=== PATIENT | female | born 1950 | race Caucasian/White ===

== ENCOUNTER 2016-08-21 11:47 | Emergency (ER) | payer OTHER ==
[~2016-08-21] VITALS: Ht 160 cm; Wt 52.0 kg
[2016-08-21 12:45] LABS: BASO # 0.1 x10^3/uL (0.0-0.2); BASO % 1 % (0-3); EOS # 0.2 x10^3/uL (0.0-0.7); EOS % 3 % (0-3); HEMATOCRIT 40.2 % (36.0-47.0); HEMOGLOBIN 13.3 g/dL (12.0-15.5); LYMPH # 1.4 x10^3/uL (1.0-4.8); LYMPH % 20 % (24-48); MEAN CORPUSCULAR HEMOGLOBIN 29 pg (25-35); MEAN CORPUSCULAR HGB CONC 33 g/dL (31-37); MEAN CORPUSCULAR VOLUME 87 fL (79-100); MONO # 0.4 x10^3/uL (0.0-1.1); MONO % 5 % (0-9); NEUT # 4.9 x10^3uL (1.8-7.7); NEUT % 71 % (31-73); PLATELET COUNT 211 x10^3/uL (140-400); RED BLOOD COUNT 4.64 x10^6/uL (3.50-5.40); RED CELL DISTRIBUTION WIDTH 14.4 % (11.5-14.5)
[2016-08-21 12:59] LABS: ALBUMIN 3.9 g/dL (3.4-5.0); CALCIUM 9.3 mg/dL (8.5-10.1); POTASSIUM 4.1 mmol/L (3.5-5.1); TOTAL BILIRUBIN 0.4 mg/dL (0.2-1.0)
--- NOTE | 2016-08-21 13:02 | RAD ---
AP chest, 08/21/2016: History: Shortness of breath Comparison is made to a study from 01/02/2016. The heart size and pulmonary vascularity are normal. No pulmonary infiltrates are seen. There is no evidence of pleural fluid. IMPRESSION: No acute cardiopulmonary abnormality is detected.
--- NOTE | 2016-08-21 13:02 | EKG ---
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
--- NOTE | 2016-08-21 13:12 | RAD ---
Indication fall 5 days previously. Frontal pain. Dizziness. Blurred vision. Posterior neck pain. The head and cervical spine were evaluated. Images of the cervical spine were reformatted in the coronal and sagittal planes. The head is compared to previous examination 01/02/2016. The calvarium appears unremarkable. The visualized paranasal sinuses appear normal. There is no subdural or epidural hematoma. The ventricles and sulci are normal given the patient's age. There is no mass or midline shift. No hemorrhage is seen. Acute intracranial finding or significant change compared to the previous exam is not seen. CT cervical spine: Findings the lung apices are clear. The thyroid is mildly and diffusely enlarged. A significant soft tissue finding in the neck is not seen. There are some degenerative changes in the cervical spine. An acute finding is not seen on the axial images. Best demonstrated on the reformatted images is some disc space narrowing at C4-5. An acute finding is not seen. There is a lucency in the C3 vertebral body. The etiology is unclear. IMPRESSION: Spondylitic changes in the cervical spine. No acute finding seen No acute finding seen in the head PQRS Compliance Statement: One or more of the following individualized dose reduction techniques were utilized for this examination: 1. Automated exposure control 2. Adjustment of the mA and/or kV according to patient size 3. Use of iterative reconstruction technique
[2016-08-21] MEDS: IV NORMAL SALINE 500ML 500 ML IV ONE (14:20)
[2016-08-21 14:40] LABS: BACTERIA,URINE FEW /HPF (0-FEW); BILIRUBIN,URINE NEG (NEG); CLARITY,URINE HAZY; COLOR,URINE YELLOW; GLUCOSE,URINE NEG (NEG); NITRITE,URINE NEG (NEG); SQUAMOUS EPITHELIAL CELL,UR OCC /LPF; UROBILINOGEN,URINE 0.2 mg/dL (0.2 mg/dL)
--- NOTE | 2016-08-21 15:59 | ED.ADGEN ---
Past History Past Medical History: No Pertinent History Past Surgical History: No Surgical History Alcohol Use: None Drug Use: None Adult General Chief Complaint Chief Complaint Multiple medical complaints HPI HPI Patient is a 65-year-old female who presents with intermittent daily headaches for the past several weeks, chronic dizziness for the past several months, urinary frequency urgency and frequency for the past several days. Patient states she slipped and off balance 5 days ago while walking in her driveway. She fell striking the left side of her face. She denies loss of consciousness. She is not on anticoagulation therapy. She is said persistent dizziness worse with position change and movement. This is similar to previous dizzy episodes. She denies tinnitus, change of hearing, change of vision, impaired speech, extremity weakness or loss of sensation. Reports urinary frequency, and urgency but denies flank pain. No fever chills, nausea vomiting or sweats. No other acute symptoms or complaints. Patient referred to the ER by her PCP earlier today. Review of Systems Review of Systems Review symptoms as per history of present illness. All other review symptoms are negative. Current Medications Current Medications Current Medications Medications (Trade) Dose Ordered Sig/Trevor Start Time Stop Time Status Last Admin Dose Admin Ciprofloxacin (Cipro) 500 mg 1X ONCE 08/21/16 16:10 08/21/16 16:11 Meclizine HCl (Antivert) 25 mg 1X ONCE 08/21/16 16:10 08/21/16 16:11 Sodium Chloride (Iv Sodium Chloride 0.9% 500ml) 500 ml @ 0 mls/hr 1X ONCE 08/21/16 13:30 08/21/16 13:31 DC 08/21/16 14:20 999 MLS/HR Allergies Allergies Allergies Coded Allergies Type Severity Reaction Last Updated Verified No Known Drug Allergies 08/21/16 No Physical Exam Physical Exam Constitutional: Well developed, well nourished, no acute distress, non-toxic appearance. HENT: Normocephalic, atraumatic, bilateral external ears normal, oropharynx moist, no oral exudates, nose normal. Eyes: PERRLA, EOMI, conjunctiva normal, no discharge. Neck: Normal range of motion, no midline tenderness. Cardiovascular:Heart rate regular rhythm, no murmur. Lungs & Thorax: Bilateral breath sounds clear to auscultation. Abdomen: Bowel sounds normal, soft, nontender pubic pain tenderness. Skin: Warm, dry, no erythema, no rash. Back: No tenderness, no CVA tenderness. Extremities: No tenderness, no cyanosis. Neurologic: Alert and oriented X 3, renal nerves II through XII grossly intact, no extremity weakness or loss of sensation. Psychologic: Affect normal, judgement normal, mood normal. Current Patient Data Vital Signs Vital Signs Date Time Temp Pulse Resp B/P Pulse Ox O2 Delivery O2 Flow Rate FiO2 08/21/16 11:55 98.3 71 18 98 Room Air Lab Results Laboratory Tests Test 08/21/16 12:34 08/21/16 14:04 White Blood Count 7.0x10^3/uL (4.0-11.0) Red Blood Count 4.64x10^6/uL (3.50-5.40) Hemoglobin 13.3g/dL (12.0-15.5) Hematocrit 40.2% (36.0-47.0) Mean Corpuscular Volume 87fL (79-100) Mean Corpuscular Hemoglobin 29pg (25-35) Mean Corpuscular Hemoglobin Concent 33g/dL (31-37) Red Cell Distribution Width 14.4% (11.5-14.5) Platelet Count 211x10^3/uL (140-400) Neutrophils (%) (Auto) 71% (31-73) Lymphocytes (%) (Auto) 20% (24-48) L Monocytes (%) (Auto) 5% (0-9) Eosinophils (%) (Auto) 3% (0-3) Basophils (%) (Auto) 1% (0-3) Neutrophils # (Auto) 4.9x10^3uL (1.8-7.7) Lymphocytes # (Auto) 1.4x10^3/uL (1.0-4.8) Monocytes # (Auto) 0.4x10^3/uL (0.0-1.1) Eosinophils # (Auto) 0.2x10^3/uL (0.0-0.7) Basophils # (Auto) 0.1x10^3/uL (0.0-0.2) Sodium Level 139mmol/L (136-145) Potassium Level 4.1mmol/L (3.5-5.1) Chloride Level 105mmol/L (98-107) Carbon Dioxide Level 28mmol/L (21-32) Anion Gap 6 (6-14) Blood Urea Nitrogen 23mg/dL (7-20) H Creatinine 1.0mg/dL (0.6-1.0) Estimated GFR (Cockcroft-Gault) 56.0 BUN/Creatinine Ratio 23 (6-20) H Glucose Level 88mg/dL (70-99) Calcium Level 9.3mg/dL (8.5-10.1) Total Bilirubin 0.4mg/dL (0.2-1.0) Aspartate Amino Transferase (AST) 17U/L (15-37) Alanine Aminotransferase (ALT) 22U/L (14-59) Alkaline Phosphatase 115U/L (46-116) Troponin I Quantitative < 0.017ng/mL (0-0.055) Total Protein 8.0g/dL (6.4-8.2) Albumin 3.9g/dL (3.4-5.0) Albumin/Globulin Ratio 1.0 (1.0-1.7) Urine Collection Type Unknown Urine Color Yellow Urine Clarity Hazy Urine pH 6.0 Urine Specific [place] 1.020 Urine Protein Neg (NEG-TRACE) Urine Glucose (UA) Negmg/dL (NEG) Urine Ketones (Stick) 15mg/dL (NEG) Urine Blood Mod (NEG) Urine Nitrite Neg (NEG) Urine Bilirubin Neg (NEG) Urine Urobilinogen Dipstick 0.2mg/dL (0.2 mg/dL) Urine Leukocyte Esterase Mod (NEG) Urine RBC 1-2/HPF (0-2) Urine WBC 11-20/HPF (0-4) Urine Squamous Epithelial Cells Occ/LPF Urine Transitional Epithelial Cells Occ/LPF Urine Bacteria Few/HPF (0-FEW) Urine Mucus Slight/LPF EKG EKG [] Radiology/Procedures Radiology/Procedures [CT head/C-spine: No acute findings per radiology report.] Impressions: Multiple medical complaints. Headache and dizziness appear to be chronic. IV fluids, pain medication given and antibiotics. With improved symptoms. Recommend home rest, increase fluids, antibiotics and close PCP follow-up. Return precautions reviewed. Patient verbalizes understanding and agreement with treatment plan prior to departure. Course & Med Decision Making Course & Med Decision Making Pertinent Labs and Imaging studies reviewed. (See chart for details) [] Final Impression Final Impression [1. Headache 2. Dizziness 3. Urinary tract infection] Problems: Ailyn Disclaimer Dragon Disclaimer This electronic medical record was generated, in whole or in part, using a voice recognition dictation system. JOSE DE JESUS JOHNSTON DO Aug 21, 2016 15:59
[2016-08-21 16:00] VITALS: BP 141/60
[2016-08-21] MEDS: MECLIZINE 25 MG TABLET PO ONE (16:10)
[2016-08-21] MEDS: CIPROFLOXACIN HCL 500 MG TABLET PO ONE (16:10)
== END 2016-08-21 16:10 | disposition home or self-care (01) ==
LOC: ER 11:47
DX: R51 Headache (principal); N39.0 Urinary tract infection, site not specified; R42 Dizziness and giddiness
CPT/HCPCS: 36415; 70450; 71010; 72125; 80053; 81001; 84443; 84484; 85027; 87086; 93005; 96360; 99285; J7040; J8597

== ENCOUNTER → 2017-05-21 | Outpatient (CLI) | payer OTHER ==
--- NOTE | 2017-05-21 13:05 | RAD ---
Radionuclide parathyroid scan 05/21/2017: History: Elevated parathyroid hormone level Imaging of the lower neck was performed following IV injection of 23 mCi of technetium 99m sestamibi. There is mildly increased activity in the medial aspect of the lower pole of the left lobe of the gland on both the initial and delayed images. Correlation with the CT study from 08/21/2016 demonstrates a mildly enlarged thyroid gland with increased thickness in the lower pole on the left. No other abnormality is is seen on the radionuclide scan. IMPRESSION: Mildly increased activity at the level of lower pole the left lobe of the thyroid gland which may be secondary to generalized thickening of the gland at that level. An underlying parathyroid adenoma cannot be excluded.
== END | disposition home or self-care (01) ==
LOC: NM 07:25
PROVIDERS: ATTEND Nurse Practitioner Family
DX: E21.2 Other hyperparathyroidism (principal)
CPT/HCPCS: 78070; 96374; A9500

== ENCOUNTER 2017-08-28 12:02 | Inpatient (IN) | payer OTHER ==
[~2017-08-28] VITALS: Ht 160 cm; Wt 78.6 kg
[2017-08-28 12:56] VITALS: BP 118/79
[2017-08-28] MEDS: IPRATRPIUM/ALBUTEROL 0.5/2.5MG 3 ML NEBU. NEB SCH ×3 (13:00→22:09)
[2017-08-28 13:26] LABS: BASO # 0.1 x10^3/uL (0.0-0.2); BASO % 1 % (0-3); EOS # 0.2 x10^3/uL (0.0-0.7); EOS % 3 % (0-3); HEMATOCRIT 39.6 % (36.0-47.0); LYMPH # 1.5 x10^3/uL (1.0-4.8); LYMPH % 20 % (24-48); MEAN CORPUSCULAR HEMOGLOBIN 27 pg (25-35); MEAN CORPUSCULAR HGB CONC 33 g/dL (31-37); MEAN CORPUSCULAR VOLUME 82 fL (79-100); MONO # 0.3 x10^3/uL (0.0-1.1); MONO % 4 % (0-9); NEUT # 5.3 x10^3uL (1.8-7.7); NEUT % 72 % (31-73); PLATELET COUNT 289 x10^3/uL (140-400); RED BLOOD COUNT 4.82 x10^6/uL (3.50-5.40); WHITE BLOOD COUNT 7.4 x10^3/uL (4.0-11.0)
[2017-08-28 13:34] LABS: ALBUMIN 3.5 g/dL (3.4-5.0); ALBUMIN/GLOBULIN RATIO 0.7 (1.0-1.7); CALCIUM 9.4 mg/dL (8.5-10.1); CREATININE 1.3 mg/dL (0.6-1.0); GFR 41.2; TOTAL BILIRUBIN 0.4 mg/dL (0.2-1.0); TOTAL PROTEIN 8.2 g/dL (6.4-8.2)
--- NOTE | 2017-08-28 14:18 | RAD ---
2 views of the Chest 08/28/2017 2:53 PM Indication: SOB/ R/O pneumonia Comparison: Chest radiograph August 21, 2016 Findings: Patchy opacification of the right lung base. The appearance there is atelectasis, though underlying pneumonia cannot be excluded. Minimal discoid atelectasis seen in the lateral left lung. Trace effusion may be present on the right. No pneumothorax is seen. Heart size is normal. Prior median sternotomy noted. No acute osseous changes are identified. Impression: 1.Patchy opacities in the right lung base, the appearance of which appears atelectasis. Underlying infiltrate however is not excluded. 2. Minimal atelectasis in the left midlung
[2017-08-28] MEDS ORDERED: IOHEXOL 300 MG/ML 75 ML VIAL. IV ONE (14:30)
[2017-08-28] MEDS ORDERED: CONTRAST GIVEN MC PRN (14:30)
[2017-08-28] MEDS ORDERED: AMIO200T2 PO (14:31)
[2017-08-28] MEDS ORDERED: PARO20TA3 PO (14:31)
[2017-08-28] MEDS ORDERED: BUSP10TA PO (14:31)
[2017-08-28] MEDS ORDERED: CYCL5TAB PO (14:31)
[2017-08-28] MEDS ORDERED: APIX5TAB3 PO (14:31)
[2017-08-28] MEDS ORDERED: METO50TA29 PO (14:31)
[2017-08-28] MEDS ORDERED: LEVO100T5 PO (14:31)
[2017-08-28 15:06] VITALS: BP 133/73
[2017-08-28 15:25] LABS: BILIRUBIN,URINE NEG (NEG); CLARITY,URINE CLOUDY; COLOR,URINE YELLOW; GLUCOSE,URINE NEG (NEG); NITRITE,URINE NEG (NEG); UROBILINOGEN,URINE 0.2 mg/dL (0.2 mg/dL)
[2017-08-28 15:26] LABS: BACTERIA,URINE 0 /HPF (0-FEW); SQUAMOUS EPITHELIAL CELL,UR FEW /LPF; WBC,URINE >40 /HPF (0-4)
[2017-08-28] MEDS: IV NORMAL SALINE 1,000ML 1,000 ML IV SCH (15:26)
[2017-08-28] MEDS: cefTRIAXone IV Push 1 GM VIAL. IVP SCH (15:26)
[2017-08-28 19:22] VITALS: BP 96/58
[2017-08-28] MEDS: LACTOBACILLUS RHAMNOSUS GG 1 CAPSULE. PO SCH (21:15)
[2017-08-28] MEDS: CYCLOBENZAPRINE 10 MG TABLET. PO SCH (21:15)
[2017-08-28] MEDS: DOXYCYCLINE HYCLATE 100 MG TABLET PO SCH (21:15)
[2017-08-28] MEDS: PARoxetine 20 MG TABLET PO SCH (21:15)
[2017-08-28] MEDS: AMIODARONE HCL 200 MG TABLET PO SCH (21:16)
[2017-08-28 21:26] VITALS: BP 112/53
[2017-08-28] MEDS: METOPROLOL SUCC 24HR ER 50 MG TAB.ER.24H. PO SCH (21:26)
[2017-08-28 22:58] VITALS: BP 91/61
[2017-08-29] MEDS: IV NORMAL SALINE 1,000ML 1,000 ML IV SCH ×3 (01:25→20:30)
[2017-08-29] MEDS: LEVOTHYROXINE 100 MCG TABLET PO SCH (02:53)
[2017-08-29 02:54] VITALS: BP 93/55
[2017-08-29] MEDS: APIXABAN 5 MG TABLET. PO SCH ×2 (02:54→11:50)
[2017-08-29] MEDS: busPIRone 10 MG TABLET. PO SCH ×2 (02:54→11:50)
[2017-08-29 05:03] VITALS: BP 105/62
[2017-08-29] MEDS: IPRATRPIUM/ALBUTEROL 0.5/2.5MG 3 ML NEBU. NEB SCH ×4 (05:30→22:22)
[2017-08-29 06:58] LABS: BASO # 0.1 x10^3/uL (0.0-0.2); BASO % 1 % (0-3); EOS # 0.2 x10^3/uL (0.0-0.7); EOS % 3 % (0-3); HEMATOCRIT 34.6 % (36.0-47.0); HEMOGLOBIN 11.2 g/dL (12.0-15.5); LYMPH # 2.2 x10^3/uL (1.0-4.8); LYMPH % 37 % (24-48); MEAN CORPUSCULAR HEMOGLOBIN 27 pg (25-35); MEAN CORPUSCULAR HGB CONC 32 g/dL (31-37); MEAN CORPUSCULAR VOLUME 83 fL (79-100); MONO # 0.3 x10^3/uL (0.0-1.1); MONO % 6 % (0-9); NEUT # 3.2 x10^3uL (1.8-7.7); NEUT % 53 % (31-73); PLATELET COUNT 228 x10^3/uL (140-400); RED BLOOD COUNT 4.17 x10^6/uL (3.50-5.40); RED CELL DISTRIBUTION WIDTH 17.5 % (11.5-14.5); WHITE BLOOD COUNT 5.9 x10^3/uL (4.0-11.0)
[2017-08-29 07:01] LABS: CALCIUM 8.7 mg/dL (8.5-10.1); CREATININE 1.1 mg/dL (0.6-1.0); POTASSIUM 3.5 mmol/L (3.5-5.1)
--- NOTE | 2017-08-29 09:10 | RAD ---
Acute abdomen series with chest, 3 views, 08/29/2017: History: Right lower quadrant tenderness and pain There is gas and stool scattered throughout the colon a nonspecific pattern. No free air is seen in the abdomen. There is no evidence of organomegaly. There are surgical clips overlying the pelvis bilaterally. Lower pelvic calcifications are probably phleboliths. The heart size and pulmonary vascularity are normal. Moderate streaky right basilar and left perihilar opacities are unchanged since yesterday's study and probably reflect discoid atelectasis. Small pleural effusions evident on the current CT study are not clearly visualized radiographically. IMPRESSION: 1. No acute abdominal abnormality is detected. 2. Moderate discoid atelectasis in the right base and left parahilar regions.
[2017-08-29] MEDS: LACTOBACILLUS RHAMNOSUS GG 1 CAPSULE. PO SCH ×2 (09:36→21:21)
[2017-08-29] MEDS: DOXYCYCLINE HYCLATE 100 MG TABLET PO SCH ×2 (09:37→21:21)
[2017-08-29 11:03] VITALS: BP 95/62
--- NOTE | 2017-08-29 13:10 | RAD ---
CTA OF THE CHEST WITH AND WITHOUT CONTRAST Clinical indications: Elevated d-dimer. Shortness of breath. Technique: Noncontrast axial localizer was performed. After IV infusion of 75 cc of Omnipaque 300, helical CT scanning of the chest was performed using the CT pulmonary embolism protocol. A coronal MIP reconstruction was generated. PQRS compliance Statement One or more of the following individualized dose reduction techniques were utilized for this study: 1. Automated exposure control 2. Adjustment of the mA and/or kV according to patient size 3. Use of iterative reconstruction technique Comparison: None available. Findings: No pulmonary embolism is evident. No focal aneurysmal dilatation or dissection of the thoracic aorta is seen. The heart size is at the upper limits of normal. No pericardial effusion is seen. Surgical clips are seen within the upper anterior mediastinum. A sternotomy is evident. There is some mild soft tissue thickening of the anterior mediastinum which most likely is postoperative in nature. No enlarged thoracic lymphadenopathy is seen. Small bilateral pleural effusions are seen. Infiltrate or atelectasis of the right lower lobe is seen. There is some atelectasis of the inferior aspect of the right middle lobe. There is infiltrate or atelectasis of the lingula. Decreased lung volumes are seen bilaterally. There is asymmetric elevation of the right hemidiaphragm. No pneumothorax is seen. The proximal bronchial tree is patent. No osteolytic process is evident. No adrenal mass is seen. Radiopaque gallstone is seen within the gallbladder. This measures 17 mm. No osteolytic process is evident. IMPRESSION: No pulmonary embolism. Decreased lung volumes. Atelectasis or infiltrate within the right lower lobe and lingula.. Atelectasis within the right middle lobe. Small bilateral pleural effusions. Cholelithiasis. Electronically signed by: Marlon Sanders MD (08/29/2017 1:07 PM) [place] [id number]
[2017-08-29 14:55] VITALS: BP 108/72
[2017-08-29] MEDS: cefTRIAXone IV Push 1 GM VIAL. IVP SCH (15:24)
--- NOTE | 2017-08-29 17:10 | EKG ---
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
[2017-08-29 19:16] VITALS: BP 111/71
[2017-08-29 21:13] LABS: THYROPEROXIDASE ANTIBODY 231 IU/mL (0-34)
[2017-08-29] MEDS: METOPROLOL SUCC 24HR ER 50 MG TAB.ER.24H. PO SCH (21:20)
[2017-08-29] MEDS: AMIODARONE HCL 200 MG TABLET PO SCH (21:21)
[2017-08-29] MEDS: CYCLOBENZAPRINE 10 MG TABLET. PO SCH (21:21)
[2017-08-29] MEDS: PARoxetine 20 MG TABLET PO SCH (21:21)
[2017-08-29 22:10] LABS: CALCIUM PTH 8.9 mg/dL (8.7-10.3); CREATININE PTH 0.84 mg/dL (0.57-1.00); PTH INTACT 103 pg/mL (15-65)
[2017-08-29 23:09] VITALS: BP 113/65
--- NOTE | 2017-08-30 00:29 | PN ---
DATE: 08/29/2017 SUBJECTIVE: The patient complains of some pain primarily in her right upper quadrant area. The patient otherwise says she is feeling good. Nothing seems to make it better or worse, except maybe taking a deep breath on exhalation, she has the pain. She still has her gallbladder. OBJECTIVE: VITAL SIGNS: Blood pressure 105/62, respiration 18, pulse 60, afebrile. LUNGS: Diminished primarily in the bases. CARDIOVASCULAR: Regular sinus rhythm, S1, S2. ABDOMEN: Soft. Definite tenderness in the epigastric to right upper quadrant area. LABORATORY DATA: She had positive D-dimer, but she has been on Eliquis. The patient has 40 white blood cells in her urine and that is still pending for a culture as well as a sputum culture. PLAN: We will continue to monitor. Continue on IV antibiotic therapy. Make further evaluation. IMPRESSION: Pneumonia of unspecified etiology, community-acquired; urinary tract infection, abdominal pain, positive D-dimer. Continue with present drug regimen. BAL CHAPA MD DR: ANJALI/devin JOB#: [id number] / [id number]
[2017-08-30] MEDS: IV NORMAL SALINE 1,000ML 1,000 ML IV SCH ×3 (01:32→14:15)
[2017-08-30] MEDS: busPIRone 10 MG TABLET. PO SCH ×2 (02:51→12:20)
[2017-08-30] MEDS: LEVOTHYROXINE 100 MCG TABLET PO SCH (02:51)
[2017-08-30] MEDS: APIXABAN 5 MG TABLET. PO SCH ×2 (02:51→12:20)
[2017-08-30] MEDS: IPRATRPIUM/ALBUTEROL 0.5/2.5MG 3 ML NEBU. NEB SCH ×4 (05:20→20:36)
[2017-08-30 05:21] VITALS: BP 119/79
[2017-08-30 06:36] LABS: BASO # 0.1 x10^3/uL (0.0-0.2); BASO % 1 % (0-3); EOS # 0.2 x10^3/uL (0.0-0.7); EOS % 4 % (0-3); HEMATOCRIT 31.6 % (36.0-47.0); HEMOGLOBIN 10.4 g/dL (12.0-15.5); LYMPH # 1.7 x10^3/uL (1.0-4.8); LYMPH % 33 % (24-48); MEAN CORPUSCULAR HEMOGLOBIN 27 pg (25-35); MEAN CORPUSCULAR HGB CONC 33 g/dL (31-37); MEAN CORPUSCULAR VOLUME 83 fL (79-100); MONO # 0.3 x10^3/uL (0.0-1.1); MONO % 6 % (0-9); NEUT % 56 % (31-73); PLATELET COUNT 210 x10^3/uL (140-400); RED CELL DISTRIBUTION WIDTH 17.3 % (11.5-14.5); WHITE BLOOD COUNT 5.3 x10^3/uL (4.0-11.0)
[2017-08-30 06:38] LABS: CALCIUM 8.6 mg/dL (8.5-10.1); CREATININE 0.8 mg/dL (0.6-1.0); GFR 72.2; POTASSIUM 3.8 mmol/L (3.5-5.1)
--- NOTE | 2017-08-30 08:26 | RAD ---
Abdominal ultrasound, 08/29/2017: History: Epigastric pain The gallbladder is within normal limits in size. It contains a single large focus of increased echogenicity with posterior acoustic shadowing compatible with a gallstone. The gallbladder hanson are not thickened. The common hepatic duct is of normal caliber. There is no evidence of a hepatic mass. The pancreas was obscured by overlying bowel. The visualized portions of the abdominal aorta and inferior vena cava are unremarkable. The spleen is of normal size. No renal abnormality is detected. No free fluid is evident in the abdomen. IMPRESSION: Cholelithiasis
[2017-08-30] MEDS: LACTOBACILLUS RHAMNOSUS GG 1 CAPSULE. PO SCH ×2 (08:37→20:36)
[2017-08-30] MEDS: DOXYCYCLINE HYCLATE 100 MG TABLET PO SCH ×2 (08:37→20:37)
[2017-08-30 10:52] VITALS: BP 117/77
[2017-08-30 15:09] VITALS: BP 115/70
[2017-08-30] MEDS: cefTRIAXone IV Push 1 GM VIAL. IVP SCH (15:27)
[2017-08-30 18:44] VITALS: BP 137/85
[2017-08-30] MEDS: PARoxetine 20 MG TABLET PO SCH (20:36)
[2017-08-30] MEDS: METOPROLOL SUCC 24HR ER 50 MG TAB.ER.24H. PO SCH (20:37)
[2017-08-30] MEDS: AMIODARONE HCL 200 MG TABLET PO SCH (20:37)
[2017-08-30] MEDS: CYCLOBENZAPRINE 10 MG TABLET. PO SCH (20:37)
[2017-08-31] MEDS: IV NORMAL SALINE 1,000ML 1,000 ML IV SCH ×2 (00:26→12:30)
[2017-08-31] MEDS: busPIRone 10 MG TABLET. PO SCH ×2 (02:53→12:29)
[2017-08-31] MEDS: APIXABAN 5 MG TABLET. PO SCH ×2 (02:53→12:29)
[2017-08-31] MEDS: LEVOTHYROXINE 100 MCG TABLET PO SCH (02:53)
[2017-08-31 06:08] VITALS: BP 133/86
[2017-08-31] MEDS: IPRATRPIUM/ALBUTEROL 0.5/2.5MG 3 ML NEBU. NEB SCH ×2 (08:00→11:48)
[2017-08-31] MEDS: LACTOBACILLUS RHAMNOSUS GG 1 CAPSULE. PO SCH (08:31)
[2017-08-31] MEDS: DOXYCYCLINE HYCLATE 100 MG TABLET PO SCH (08:31)
[2017-08-31 11:01] VITALS: BP 124/70
[2017-08-31] MEDS ORDERED: IPRA3AMP NEB (11:47)
[2017-08-31] MEDS ORDERED: CIPR500T94 PO (14:18)
--- NOTE | 2017-08-31 17:12 | PN ---
DATE: 08/30/2017 SUBJECTIVE: A 66-year-old female in with pneumonia. The patient is still having problems with breathing and coughing up phlegm. The patient says she gets caught in her throat and has difficulty in for evacuation of such. The patient is still somewhat short of breath with exertion, although seems to be making some steady progress the patient otherwise. PHYSICAL EXAMINATION: VITAL SIGNS: Blood pressure 120/80, respiratory rate 16, pulse 62, afebrile. GENERAL: The patient is alert and oriented. LUNGS: Diminished, primarily in the bases. CARDIOVASCULAR: Regular sinus rhythm, S1, S2. ABDOMEN: Soft, nontender. EXTREMITIES: No clubbing, cyanosis or edema. NEUROLOGIC: The patient alert and oriented x 3. IMPRESSION: Pneumonia, acute exacerbation of COPD, urinary tract infection, probably collected after she had her antibiotics. In any case, continue on IV antibiotic therapy and make further evaluation. BAL CHAPA MD DR: ANJALI/devin JOB#: [id number] / [id number]
--- NOTE | 2017-09-01 00:06 | DS ---
DATE OF DISCHARGE: 08/31/2017 HOSPITAL COURSE: A 66-year-old female in with pneumonia. The patient was admitted. She also had exacerbation of COPD, acute respiratory failure. The patient made good progress during the rest of her hospitalization. She did have some abdominal pain and was noted to have some cholelithiasis. She had one gallstone. In any case, the patient made good progress during the rest of her hospitalization and felt much better. She was discharged home to followup. She will be followed up as an outpatient. Other than that, the patient's labs showed some minor anemia and some vitamin D deficiency. She did also have an elevated PTH. Her calcium scores were normal. She had slightly low iron levels. The patient will be followed up as an outpatient for further evaluation on these multiple problems. IMPRESSION: Pneumonia of unspecified etiology, hyperparathyroidism, iron deficiency anemia, vitamin D deficiency, acute renal failure from dehydration, acute exacerbation of chronic obstructive pulmonary disease. PLAN: The patient will be followed up as an outpatient. See MRAD. Regular diet, decreased activity, and followup on her multiple medical issues as noted above. BAL CHAPA MD DR: ANJALI/devin JOB#: [id number] / [id number]
== END 2017-08-31 14:25 | disposition home or self-care (01) | DRG 193 ==
LOC: 1 SOUTH 12:38
PROVIDERS: ADMIT Family Medicine; ATTEND Family Medicine
DX: J16.8 Pneumonia due to other specified infectious organisms (principal); J96.00 Acute respiratory failure, unspecified whether with hypoxia or hypercapnia; N39.0 Urinary tract infection, site not specified; N17.9 Acute kidney failure, unspecified; J44.1 Chronic obstructive pulmonary disease with (acute) exacerbation; J44.0 Chronic obstructive pulmonary disease with (acute) lower respiratory infection; E86.0 Dehydration; E55.9 Vitamin D deficiency, unspecified; D50.9 Iron deficiency anemia, unspecified; K80.20 Calculus of gallbladder without cholecystitis without obstruction; E03.9 Hypothyroidism, unspecified; E21.2 Other hyperparathyroidism; R10.31 Right lower quadrant pain; R53.83 Other fatigue; E04.8 Other specified nontoxic goiter; Z79.899 Other long term (current) drug therapy
CPT/HCPCS: 36415; 71046; 71275; 74022; 76700; 80048; 80053; 81001; 82306; 82607; 82728; 82746; 83540; 83550; 83605; 83970; 84481; 85025; 85379; 86376; 87040; 87086; 93005; 94640; J0696; J7620; Q9967; J7030

== ENCOUNTER → 2017-09-06 | Outpatient (CLI) | payer OTHER ==
[2017-08-31 11:01] VITALS: BP 124/70
[~2017-09-06] MED LIST: AMIO200T2 PO; APIX5TAB3 PO; BUSP10TA PO; CIPR500T94 PO; CYCL5TAB PO; IPRA3AMP NEB; LEVO100T5 PO; METO50TA29 PO; PARO20TA3 PO
--- NOTE | 2017-09-06 16:44 | RAD ---
Thyroid ultrasound, 09/06/2017: HISTORY: Abnormal thyroid labs The right lobe of the gland measures 4.4 x 1.7 x 1.6 cm while the left lobe of the gland measures 5.1 x 1.7 x 2.0 cm. The thyroid echo pattern is quite heterogeneous bilaterally. No discrete or dominant thyroid lesion is seen. The thyroid vascularity does not appear to be increased. IMPRESSION: Markedly heterogeneous thyroid gland suggesting old or chronic thyroiditis. Electronically signed by: Carter Haas MD (09/06/2017 4:41 PM) [facility]
== END | disposition home or self-care (01) ==
LOC: US 14:22
PROVIDERS: ATTEND Nurse Practitioner Family
DX: E21.2 Other hyperparathyroidism (principal); E04.8 Other specified nontoxic goiter; Z87.891 Personal history of nicotine dependence
CPT/HCPCS: 76536

== ENCOUNTER 2017-09-28 11:22 | Inpatient (IN) | payer OTHER ==
[~2017-09-28] VITALS: Ht 160 cm; Wt 75.4 kg
[2017-09-28 12:00] VITALS: BP 140/87
[2017-09-28] MEDS ORDERED: MECL-51 PO (12:11)
[2017-09-28] MEDS ORDERED: SENN-79 PO (12:11)
[2017-09-28 12:23] LABS: BASO # 0.1 x10^3/uL (0.0-0.2); BASO % 1 % (0-3); EOS # 0.2 x10^3/uL (0.0-0.7); EOS % 2 % (0-3); HEMATOCRIT 41.1 % (36.0-47.0); HEMOGLOBIN 13.7 g/dL (12.0-15.5); LYMPH # 1.1 x10^3/uL (1.0-4.8); LYMPH % 12 % (24-48); MEAN CORPUSCULAR HEMOGLOBIN 27 pg (25-35); MEAN CORPUSCULAR HGB CONC 33 g/dL (31-37); MEAN CORPUSCULAR VOLUME 81 fL (79-100); MONO # 0.4 x10^3/uL (0.0-1.1); MONO % 5 % (0-9); NEUT # 7.6 x10^3uL (1.8-7.7); NEUT % 81 % (31-73); PLATELET COUNT 430 x10^3/uL (140-400); RED BLOOD COUNT 5.11 x10^6/uL (3.50-5.40); RED CELL DISTRIBUTION WIDTH 17.6 % (11.5-14.5); WHITE BLOOD COUNT 9.5 x10^3/uL (4.0-11.0)
[2017-09-28 12:41] LABS: ALBUMIN 3.4 g/dL (3.4-5.0); ALBUMIN/GLOBULIN RATIO 0.6 (1.0-1.7); CALCIUM 9.5 mg/dL (8.5-10.1); CREATININE 1.4 mg/dL (0.6-1.0); GFR 37.9; POTASSIUM 3.5 mmol/L (3.5-5.1); TOTAL BILIRUBIN 0.6 mg/dL (0.2-1.0); TOTAL PROTEIN 8.8 g/dL (6.4-8.2)
--- NOTE | 2017-09-28 13:36 | RAD ---
CT CHEST WITHOUT CONTRAST INDICATION: short of breath with cough x 2 days COMPARISON: CTA chest dated 08/29/2017, thyroid ultrasound dated 09/06/2017 Technique: Helical CT of the chest was performed without contrast. Axial and coronal reconstructions were obtained. Findings: Unchanged asymmetric enlargement of the left lobe of the thyroid better evaluated on recent thyroid ultrasound. There is no axillary, mediastinal, or hilar adenopathy, although evaluation of the kristina is limited without IV contrast. Calcified right hilar lymph node related to remote granulomatous disease. Mild atherosclerosis of the thoracic aorta and its branches. The cardiac size is borderline enlarged, unchanged. CABG. There is no pericardial effusion. The central airways are patent. Small right greater than left pleural effusions with resultant relaxation atelectasis. Apparent 0.7 cm nodule in the right base (image 32, series 2). Bilateral linear opacities likely related to atelectasis or scarring. Cholelithiasis. The visualized upper abdomen is otherwise unremarkable. No acute osseous abnormality. Median sternotomy. Mild multilevel degenerative changes of the visualized spine. IMPRESSION: 1. Small right greater than left pleural effusions with resultant relaxation atelectasis. 2. Apparent 0.7 cm nodule in the right base, although atelectasis in the region limits evaluation. Follow-up CT chest should be obtained in 3 months. 3. Unchanged borderline cardiomegaly. PQRS Compliance Statement: One or more of the following individualized dose reduction techniques were utilized for this examination: 1. Automated exposure control 2. Adjustment of the mA and/or kV according to patient size 3. Use of iterative reconstruction technique Electronically signed by: Florin Gay MD (09/28/2017 1:32 PM) [facility]
--- NOTE | 2017-09-28 14:52 | EKG ---
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
[2017-09-28 15:15] VITALS: BP 107/74
[2017-09-28] MEDS: IPRATRPIUM/ALBUTEROL 0.5/2.5MG 3 ML NEBU. NEB SCH ×2 (15:29→21:44)
[2017-09-28] MEDS: cefTRIAXone IV Push 1 GM VIAL. IVP SCH (17:54)
[2017-09-28] MEDS: AZITHROMYCIN 250 MG TABLET. PO SCH (17:55)
[2017-09-28 18:07] LABS: BACTERIA,URINE FEW /HPF (0-FEW); BILIRUBIN,URINE NEG (NEG); CLARITY,URINE CLOUDY; COLOR,URINE YELLOW; GLUCOSE,URINE NEG (NEG); NITRITE,URINE NEG (NEG); SQUAMOUS EPITHELIAL CELL,UR OCC /LPF; UROBILINOGEN,URINE 1 mg/dL (0.2 mg/dL); WBC,URINE TNTC /HPF (0-4)
[2017-09-28 19:15] VITALS: BP 161/85
[2017-09-28] MEDS: CYCLOBENZAPRINE 10 MG TABLET. PO SCH (20:12)
[2017-09-28] MEDS: PARoxetine 20 MG TABLET PO SCH (20:12)
[2017-09-28] MEDS: MECLIZINE 12.5 MG TABLET. PO SCH (20:13)
[2017-09-28] MEDS: AMIODARONE HCL 200 MG TABLET PO SCH (20:13)
[2017-09-28] MEDS: APIXABAN 5 MG TABLET. PO SCH (20:13)
[2017-09-28] MEDS: METOPROLOL SUCC 24HR ER 50 MG TAB.ER.24H. PO SCH (20:13)
[2017-09-28] MEDS: busPIRone 10 MG TABLET. PO SCH (20:13)
[2017-09-28] MEDS: LACTOBACILLUS RHAMNOSUS GG 1 CAPSULE. PO SCH (20:14)
[2017-09-29 00:01] VITALS: BP 92/63
[2017-09-29] MEDS: IPRATRPIUM/ALBUTEROL 0.5/2.5MG 3 ML NEBU. NEB SCH ×3 (05:15→21:03)
[2017-09-29] MEDS: LEVOTHYROXINE 100 MCG TABLET PO SCH (05:36)
[2017-09-29 05:45] VITALS: BP 106/76
[2017-09-29 07:23] VITALS: BP 95/66
[2017-09-29] MEDS: busPIRone 10 MG TABLET. PO SCH ×2 (09:00→20:42)
[2017-09-29] MEDS: APIXABAN 5 MG TABLET. PO SCH ×2 (09:00→20:42)
[2017-09-29] MEDS: LACTOBACILLUS RHAMNOSUS GG 1 CAPSULE. PO SCH ×2 (09:00→20:43)
--- NOTE | 2017-09-29 10:09 | CONS ---
DATE OF CONSULTATION: 09/29/2017 REASON FOR CONSULTATION: Chest pain. HISTORY OF PRESENT ILLNESS: The patient is a pleasant 66-year-old woman with past medical history as noted below, who presents to the hospital in the setting of dyspnea and intermittent chest pain. Of note, she was admitted to the hospital in late August with a diagnosis of pneumonia and was treated for that with antibiotics and also was noted to have some anemia and discharged to home in stable condition. She reports over the course of the last 2 weeks, she continues to feel fatigued and has not gone to work and has had intermittent chest pain at the site of her sternal incision, which apparently was done for a thoracic mass in 06/2017. The patient does not recall any prior cardiac history such as cardiac catheterization and stenting or bypass surgery. Initial reports were that she had a bypass surgery in the recent past, but the patient does not recall any ischemic heart disease. In talking with the patient denies any specific angina, orthopnea, PND or lower extremity edema. No syncope or palpitations, but she does endorse some anxiety issues. PAST MEDICAL HISTORY: 1. 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 2. Anxiety. 3. Recent pneumonia. 4. History of hyperparathyroidism. 5. Anemia of chronic disease. 6. Presumed atrial fibrillation, probably postoperative currently on amiodarone and Eliquis therapies. 7. Probable mild hypertension. SOCIAL HISTORY: The patient denies any alcohol, tobacco or illicit drug use. ALLERGIES: No known drug allergies. CURRENT CARDIAC MEDICATIONS: 1. Toprol-XL 50 mg daily. 2. Eliquis 5 mg p.o. b.i.d. 3. Amiodarone 200 mg p.o. at bedtime. REVIEW OF SYSTEMS: Negative for 10 out of 14 systems reviewed, unless otherwise as mentioned above in the HPI. PHYSICAL EXAMINATION: VITAL SIGNS: Afebrile, 64, 18, 95/66, 99% on room air. GENERAL: She is alert and oriented, in no acute distress. HEAD AND NECK: Exam is unremarkable. HEART: Regular rate and rhythm without any murmurs, rubs or gallops. LUNGS: Clear to auscultation except for bibasilar rales. ABDOMEN: Soft, nontender, and nondistended. EXTREMITIES: No clubbing, cyanosis or edema. NEUROLOGIC: No focal deficits. MUSCULOSKELETAL: No trauma. DIAGNOSTIC STUDIES: EKG demonstrates sinus rhythm. LABORATORY DATA: 1. Hemoglobin 13.7, platelets are 430,000. 2. Creatinine mildly elevated at 1.4. 3. Troponin is negative x 1. 4. BNP minimally elevated at 426. Chest CT is notable for small bilateral pleural effusions, but otherwise no significant pneumonia as noted. IMPRESSION: 1. Very atypical chest pain, unlikely to be cardiac in nature, but the status of her coronary anatomy is unclear and per patient, she does not believe that she has had any prior history of coronary artery disease, but the CT scan is suggestive of prior bypass, but this may be an error. 2. Presumed postoperative atrial fibrillation, on anticoagulation and rate control. 3. Recent pneumonia without any obvious evidence of pneumonia. RECOMMENDATIONS: Would obtain records from [facility] as she would certainly have had some sort of preoperative evaluation including echocardiogram and/or stress testing prior to her open thoracic surgery. At this present time, no further cardiovascular recommendations, okay to discharge from a cardiac standpoint after outside hospital records are available for review. Thank you for this consultation. JULIAN MAYES MD DR: OSMAR/devin JOB#: [id number] / [id number]
[2017-09-29] MEDS: AZITHROMYCIN 250 MG TABLET. PO SCH (17:58)
[2017-09-29] MEDS: cefTRIAXone IV Push 1 GM VIAL. IVP SCH (17:58)
[2017-09-29 19:40] VITALS: BP 100/66
[2017-09-29] MEDS: CYCLOBENZAPRINE 10 MG TABLET. PO SCH (20:42)
[2017-09-29] MEDS: PARoxetine 20 MG TABLET PO SCH (20:43)
[2017-09-29] MEDS: MECLIZINE 12.5 MG TABLET. PO SCH (20:43)
[2017-09-29] MEDS: SENNOSIDES 8.6 MG TABLET PO PRN (20:43)
[2017-09-29] MEDS: AMIODARONE HCL 200 MG TABLET PO SCH (20:43)
[2017-09-29] MEDS: METOPROLOL SUCC 24HR ER 50 MG TAB.ER.24H. PO SCH (21:00)
[2017-09-29 22:55] VITALS: BP 99/65
[2017-09-30] VITALS (7 sets, daily range): BP systolic 93–117; BP diastolic 54–73
[2017-09-30] MEDS: IPRATRPIUM/ALBUTEROL 0.5/2.5MG 3 ML NEBU. NEB SCH ×3 (05:39→20:53)
[2017-09-30] MEDS: LEVOTHYROXINE 100 MCG TABLET PO SCH (06:08)
[2017-09-30] MEDS: LACTOBACILLUS RHAMNOSUS GG 1 CAPSULE. PO SCH ×2 (09:09→21:18)
[2017-09-30] MEDS: busPIRone 10 MG TABLET. PO SCH ×2 (09:09→21:19)
[2017-09-30] MEDS: APIXABAN 5 MG TABLET. PO SCH ×2 (09:09→21:19)
--- NOTE | 2017-09-30 12:19 | EKG ---
[address] [address] Test Date: 2017-09-30 Test Time: 12:15:08 Pat Name: ENDY NIELSEN Department: Room: 113 A Gender: F Director Television: : 1950 Requested By: BAL CHAPA Order Number: [id number] Reading MD: Measurements Intervals [place] Rate: 88 P: 36 AK: 130 QRS: 0 QRSD: 102 T: -10 QT: 384 QTc: 468 Interpretive Statements SINUS RHYTHM LEFTWARD AXIS QRS(T) CONTOUR ABNORMALITY CONSIDER ANTEROSEPTAL MYOCARDIAL DAMAGE CONSISTENT WITH INFERIOR INFARCT PROBABLY OLD ABNORMAL ECG RI6.01 Compared to ECG 09/28/2017 13:20:06 Left-axis deviation now present Myocardial infarct finding now present
--- NOTE | 2017-09-30 12:28 | PN ---
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 Anyway, came in with severe chest pain, abnormal EKGs. The patient is resting fairly comfortably right now, but she has been reviewed by Cardiology. PHYSICAL EXAMINATION: VITAL SIGNS: The patient's blood pressure still on the low side, has dropped down from 160 down to 95/66. She is afebrile. Pulses are good. LUNGS: Diminished, some crackles noted in the bases. CARDIOVASCULAR: Regular sinus rhythm. ABDOMEN: Soft, nontender. EXTREMITIES: +1 edema. NEUROLOGIC: Intact. The patient had too numerous to count white blood cells. She does have a very significant bladder infection. She continues on IV Rocephin as well as Zithromax, but cover both any type of pneumonic process as well as urinary tract infection. IMPRESSION: Hypotension (NC), acute bronchitis, urinary tract infection, organism unspecified presently, continue on culture and IV antibiotic therapy. BAL CHAPA MD DR: ANJALI/devin JOB#: [id number] / [id number]
[2017-09-30] MEDS: AZITHROMYCIN 250 MG TABLET. PO SCH (18:25)
[2017-09-30] MEDS: cefTRIAXone IV Push 1 GM VIAL. IVP SCH (18:26)
[2017-09-30] MEDS: PARoxetine 20 MG TABLET PO SCH (21:17)
[2017-09-30] MEDS: SENNOSIDES 8.6 MG TABLET PO PRN (21:18)
[2017-09-30] MEDS: AMIODARONE HCL 200 MG TABLET PO SCH (21:18)
[2017-09-30] MEDS: METOPROLOL SUCC 24HR ER 50 MG TAB.ER.24H. PO SCH (21:18)
[2017-09-30] MEDS: MECLIZINE 12.5 MG TABLET. PO SCH (21:18)
[2017-09-30] MEDS: CYCLOBENZAPRINE 10 MG TABLET. PO SCH (21:19)
[2017-10-01] MEDS: IPRATRPIUM/ALBUTEROL 0.5/2.5MG 3 ML NEBU. NEB SCH ×2 (04:42→09:58)
[2017-10-01 06:25] VITALS: BP 108/67
[2017-10-01] MEDS ORDERED: LEVOTHYROXINE 100 MCG TABLET PO SCH (07:00)
[2017-10-01] MEDS: APIXABAN 5 MG TABLET. PO SCH (08:45)
[2017-10-01] MEDS: LACTOBACILLUS RHAMNOSUS GG 1 CAPSULE. PO SCH (08:45)
[2017-10-01] MEDS: busPIRone 10 MG TABLET. PO SCH (08:45)
--- NOTE | 2017-10-01 09:36 | PDOC ---
PROGRESS NOTES Assessment 1. Atypical chest pain. - VT ruled out. Normal LVEF and wall motion by echo on 06/24/17. MPI this am. 2. presumed post op atrial fibrillation - remains sinus rhythm. On metoprolol and Eliquis. Subjective no further chest pain, breathing easy, no palpitations, no lightheadedness. ambulated without symptoms. Objective Vital Signs Date Time Temp Pulse Resp B/P (MAP) Pulse Ox O2 Delivery O2 Flow Rate FiO2 10/01/17 06:25 98.4 75 18 108/67 (81) 93 Room Air Intake and Output 10/01/17 07:00 Intake Total 1410 ml Balance 1410 ml Intake Oral 1410 ml # Voids 7 Abdomen: Normal bowel sounds, Soft, No tenderness Heart: Regular rate, Normal S1, Normal S2 Extremities: No cyanosis, No edema, Normal pulses General: Alert, Oriented X3, Cooperative, No acute distress Lungs: Other (bibasilar crackles that clear with cough) Neuro: Normal speech, Strength at 5/5 X4 ext Psych/Mental Status: Mental status NL, Mood NL Review of Relevant I have reviewed the following items halina (where applicable) has been applied. Labs Laboratory Tests Test 09/30/17 11:20 Creatine Kinase 32 U/L (26-192) Troponin I Quantitative < 0.017 ng/mL (0-0.055) Microbiology 09/28/17 Blood Culture - Preliminary, Resulted NO GROWTH AFTER 2 DAYS... 09/28/17 Urine Culture - Final, Complete 09/28/17 Urine Culture Result 1 (CHARLEY) - Final, Complete Medications Current Medications Albuterol/ Ipratropium (Duoneb) 3 ml TID NEB Last administered on 10/01/17at 04: 42; Start 09/28/17 at 14:00 Levothyroxine Sodium (Synthroid) 100 mcg DAILY06 PO Last administered on at 06:08; Start 09/29/17 at 06:00; Stop 09/30/17 at 11:02; Status DC Amiodarone HCl (Cordarone) 200 mg HS PO Last administered on 09/30/17at 21:18; Start 09/28/17 at 21:00 Apixaban (Eliquis) 5 mg BID PO Last administered on 10/01/17at 08:45; Start at 21:00 Buspirone HCl (Buspar) 10 mg BID PO Last administered on 10/01/17 08:45; Start 09/28/17 at 21:00 Cyclobenzaprine HCl (Flexeril) 5 mg HS PO Last administered on 09/30/17 21:19 ; Start 09/28/17 at 21:00 Meclizine HCl (Antivert) 25 mg HS PO Last administered on 09/30/17 21:18; Start 09/28/17 at 21:00 Metoprolol Succinate (Toprol Xl) 50 mg HS PO Last administered on 09/30/17 21: 18; Start 09/28/17 at 21:00 Paroxetine HCl (Paxil) 20 mg HS PO Last administered on 09/30/17 21:17; Start 09/28/17 at 21:00 Sennosides (Senna) 8.6 mg PRN DAILY PRN PO CONSTIPATION Last administered on 21:18; Start 09/28/17 at 12:45 Azithromycin (Zithromax) 500 mg Q24H PO Last administered on 09/30/17at 18:25; Start 09/28/17 at 18:00 Ceftriaxone Sodium 1 gm/ Sodium Chloride 50 ml @ 100 mls/hr Q24H IV ; Start at 17:30; Stop 09/28/17 at 17:30; Status DC Ceftriaxone Sodium (Rocephin) 1 gm Q24H IVP Last administered on 09/30/17at 18: 26; Start 09/28/17 at 18:00 Lactobacillus Rhamnosus (Culturelle) 1 cap BID PO Last administered on at 08:45; Start 09/28/17 at 21:00 Levothyroxine Sodium (Synthroid) 100 mcg DAILY07 PO Last administered on at 06:21; Start 10/01/17 at 07:00 Active Scripts Active Duoneb 0.5-3(2.5) Mg/3 Ml (Albuterol/Ipratropium) 3 Ml Ampul.neb 3 Ml NEB TID 30 Days Reported Meclizine Hcl 25 Mg Tab.chew 25 Mg PO QHS Senna (Sennosides) 8.6 Mg Tablet 8.6 Mg PO PRN DAILY PRN Cyclobenzaprine Hcl 5 Mg Tablet 5 Mg PO HS LAST DOSE GIVEN: DATE: YESTER TIME: BEDTIME NEXT DOSE DUE: DATE: TODAY TIME: BEDTIME Eliquis (Apixaban) 5 Mg Tablet 5 Mg PO PCT851 LAST DOSE GIVEN: DATE: TODAY TIME: NOON NEXT DOSE DUE: DATE: TOMORROW TIME: AM Buspirone Hcl 10 Mg Tablet 10 Mg PO [id number] LAST DOSE GIVEN: DATE: TIME: NOON NEXT DOSE DUE: DATE: TOMORR TIME: AM Metoprolol Succinate ( Xl ) (Metoprolol Succinate) 50 Mg Tab.er.24h 50 Mg PO HS LAST DOSE GIVEN: DATE: YESTER TIME: BEDTIME NEXT DOSE DUE: DATE: TODAY TIME: BEDTIME Levothyroxine Sodium 100 Mcg Tablet 100 Mcg PO DAILY03 LAST DOSE GIVEN: DATE: TIME: AM NEXT DOSE DUE: DATE: TOMORR TIME: AM Amiodarone Hcl 200 Mg Tablet 1 Tab PO HS LAST DOSE GIVEN: DATE: YES TIME: BEDTIME NEXT DOSE DUE: DATE: TIME: BEDTIME Paroxetine Hcl 20 Mg Tablet 20 Mg PO HS LAST DOSE GIVEN: DATE: YESTER TIME: BEDTIME NEXT DOSE DUE: DATE: TODAY TIME: BEDTIME Vitals/I & O Vital Sign - Last 24 Hours 09/30/17 09/30/17 09/30/17 09/30/17 10:42 10:44 10:49 10:54 Temp 97.8 Pulse 91 90 97 Resp 20 20 20 B/P (MAP) 107/71 (83) 112/69 (83) 111/73 (86) Pulse Ox 98 97 96 95 O2 Delivery Room Air Room Air Room Air Room Air 09/30/17 09/30/17 09/30/17 09/30/17 15:25 19:10 19:10 20:53 Temp 98.7 99.0 Pulse 85 89 Resp 18 18 B/P (MAP) 93/54 (67) 117/68 (84) Pulse Ox 93 94 96 O2 Delivery Room Air Room Air Room Air Room Air 09/30/17 09/30/17 09/30/17 10/01/17 21:18 21:18 22:35 04:43 Temp 98.9 Pulse 89 89 88 Resp 18 B/P (MAP) 117/68 117/68 109/58 (75) Pulse Ox 93 96 O2 Delivery Room Air Room Air 10/01/17 06:25 Temp 98.4 Pulse 75 Resp 18 B/P (MAP) 108/67 (81) Pulse Ox 93 O2 Delivery Room Air Intake and Output 09/30/17 09/30/17 10/01/17 15:00 23:00 07:00 Intake Total 960 ml 450 ml 0 ml Balance 960 ml 450 ml 0 ml MICHELL CASTANEDA APRN October 01, 2017 09:36
--- NOTE | 2017-10-01 09:40 | PN ---
DATE: 09/30/2017 SUBJECTIVE: A 66-year-old female, not feeling well today. Very weak, unsteady on her feet. The patient notes a drop in her blood pressure into the 90s and feels very wobbly, so we will keep her and monitor accordingly. OBJECTIVE: VITAL SIGNS: Otherwise, blood pressure approximately 95/60, respiratory rate 18, pulse 90, afebrile. GENERAL: The patient is alert and oriented, but says she is weak and does not feel very good. So we will go ahead and continue to monitor her here. LUNGS: Clear. CARDIOVASCULAR: Regular sinus rhythm, S1, S2. ABDOMEN: Soft, nontender. IMPRESSION: Chest pain, paroxysmal atrial fibrillation, generalized weakness, hypothyroidism. Continue to monitor the patient and may repeat EKG and cardiac enzymes because she does complain of some intermittent chest discomfort, recent surgery. BAL CHAPA MD DR: ANJALI/devin JOB#: [id number] / [id number]
[2017-10-01] MEDS ORDERED: REGADENOSON 0.4 MG/5 ML DISP.SYRIN. IV ONE (10:00)
[2017-10-01 11:40] VITALS: BP 111/72
--- NOTE | 2017-10-01 21:24 | DS ---
DATE OF DISCHARGE: 10/01/2017 HOSPITAL COURSE: This is a 66-year-old female came in with intermittent chest pain and dyspnea, recently treated for pneumonia. The patient does have a history of a presumed thoracic mass and she had a resection at [facility]. She has also had a history of pneumonia hyperparathyroidism, anemia of chronic disease, paroxysmal atrial fibrillation. The patient made good progress, was seen by Dr. Medina, who is a lace paper machine operator. The patient otherwise had an abnormal EKG in the office. She made good progress while here in the hospital. She continued with IV antibiotics ____ precaution on her just in case there was any residual pneumonia. The patient was very weak and at times she received PT, OT, was able to mobilize and was discharged home for followup. She was told to follow up with her lace paper machine operator at [facility] for further evaluation of her chest pain. She did have a CT scan of the chest that showed a left pleural effusion, atelectasis, 8.7 cm nodule in the right lung base, otherwise unchanged, borderline cardiomegaly. The patient will follow up on that. IMPRESSION: Chest pain, cardiomegaly, thoracic mass, hypothyroidism, started on levothyroxine, chronic kidney disease 3, what appeared to be a urinary tract infection with too numerous to count white blood cells, elevated D-dimer. CTA negative there. In any case, the patient had an elevated D-dimer, but this has recently been evaluated down at [facility] and the like. The patient also looked like she had some type of a bladder infection, although cultures came back negative. She did run a low grade temperature and she did have greater than 40 white blood cells per high powered field. We will continue her on some type of oral antibiotic to cover that as well as any reoccurrence of her pneumonia. The patient also recently had surgery, apparently resection of that mass in her chest as well. The patient was up walking around without any complication. She was discharged home. See MRAD and decreased activity, heart healthy diet. BAL CHAPA MD DR: ANJALI/devin JOB#: [id number] / [id number]
== END 2017-10-01 18:00 | disposition home or self-care (01) | DRG 202 ==
LOC: ICU 11:24 → OBSVTOIN 11:36 → 1 SOUTH 17:37
PROVIDERS: ADMIT Family Medicine; ATTEND Family Medicine
DX: J20.9 Acute bronchitis, unspecified (principal); N39.0 Urinary tract infection, site not specified; J90 Pleural effusion, not elsewhere classified; I95.9 Hypotension, unspecified; I48.0 Paroxysmal atrial fibrillation; N18.3 Chronic kidney disease, stage 3 (moderate); E03.9 Hypothyroidism, unspecified; F41.9 Anxiety disorder, unspecified; I51.7 Cardiomegaly; E21.3 Hyperparathyroidism, unspecified; R91.1 Solitary pulmonary nodule; Z87.01 Personal history of pneumonia (recurrent); Z79.01 Long term (current) use of anticoagulants
CPT/HCPCS: 36415; 71250; 78452; 80053; 81001; 82550; 83605; 83880; 84443; 84484; 85025; 85379; 87040; 87086; 87641; 93005; 93017; 94640; 96374; 96375; A9500; G0379; J0456; J0696; J2785; J7620; J8597

== ENCOUNTER → 2017-10-08 | Outpatient (CLI) | payer OTHER ==
[2017-10-01 11:40] VITALS: BP 111/72
[~2017-10-08] MED LIST changes: -AMIO200T2 PO; +AMIO200T4 PO; -IPRA3AMP NEB; +IPRA3AMP29 NEB; +MECL-51 PO; +SENN-79 PO
== END | disposition home or self-care (01) ==
LOC: NM 08:55
PROVIDERS: ATTEND Nurse Practitioner
DX: R07.9 Chest pain, unspecified (principal); E21.3 Hyperparathyroidism, unspecified; J44.1 Chronic obstructive pulmonary disease with (acute) exacerbation; Z87.891 Personal history of nicotine dependence
CPT/HCPCS: 78451; 96374; A9500

== ENCOUNTER 2017-11-18 01:50 | Observation (INO) | payer OTHER ==
[~2017-11-18] VITALS: Ht 160 cm; Wt 81.6 kg
--- NOTE | 2017-11-18 02:07 | PHYS DOC ---
Past History Past Medical History: No Pertinent History Past Surgical History: No Surgical History Alcohol Use: None Drug Use: None Adult General Chief Complaint Chief Complaint: CHEST PAIN HPI HPI Patient is a 66-year-old female presenting with chest pain. She's had this chest pain Off for At Least a Week Now but It Became Constant Yesterday This in the Center Part of the Chest Just Lateral to Her Incision and Radiates to Her Right Arm She Said It Was so Bad Yesterday When She Was Driving She Had to Hold Her Pectoralis Muscle to Make It Feel Better. In Addition the Pain Is Increased When She Moves Her Arm around. She Says She Gets Some Relief When She Sleeps but Then She Woke up an Hour Ago and Was Hurting More so She Came to the Emergency Room for Evaluation the Paramedics Gave Aspirin and 1 Nitroglycerin Which Did Decrease Her Pain. Of note patient has had multiple presentations for this similar type of chest pain ever since a mediastinal mass removal June 20- [facility] she did have two CT scans of her chest negative for PE in the last couple of months she had an equivocal stress test on October 08. Review of Systems Review of Systems Constitutional: Denies fever or chills [] Eyes: Denies change in visual acuity, redness, or eye pain [] HENT: Denies nasal congestion or sore throat [] cv: chest pain GI: She did have abdominal pain earlier but it went away Neurologic: Denies headache, focal weakness or sensory changes [] All other systems were reviewed and found to be within normal limits, except as documented in this note. Allergies Allergies Allergies Coded Allergies Type Severity Reaction Last Updated Verified No Known Drug Allergies 08/21/16 No Physical Exam Physical Exam Constitutional: Well developed, well nourished, no acute distress, non-toxic appearance. [] HENT: Normocephalic, atraumatic, bilateral external ears normal, oropharynx moist, no oral exudates, nose normal. [] Eyes: PERRLA, EOMI, conjunctiva normal, no discharge. [] Neck: Normal range of motion, no tenderness, supple, no stridor. [] Cardiovascular:Heart rate regular rhythm, no murmur [] Lungs & Thorax: Bilateral breath sounds clear to auscultation []patient is a well-healed surgical incision middle of the chest there is chest wall tenderness just lateral to that at the costochondral junction Abdomen: Bowel sounds normal, soft, no tenderness, no masses, no pulsatile masses. [] Skin: Warm, dry, no erythema, no rash. [] Back: No tenderness, no CVA tenderness. [] Extremities: No tenderness, no cyanosis, no clubbing, ROM intact, no edema. [] Neurologic: Alert and oriented X 3, normal motor function, normal sensory function, no focal deficits noted. [] Psychologic: Affect normal, judgement normal, mood normal. [] EKG EKG ekg shows nsr rate 77 no acute ischemic changes noted, there is q wave in lead iii. nonsp inferior changes,[] Radiology/Procedures Radiology/Procedures [] Impressions: The right hemidiaphragm is moderately elevated with right basilar atelectasis. There is mild atelectasis in the left midlung. There is no pneumothorax or clear pleural effusion. The heart is not enlarged. IMPRESSION: 1. Moderate elevation of the right hemidiaphragm with right greater than left basilar atelectasis. Electronically signed by: Lary Hicks MD (11/18/2017 2:43 AM) [facility] [place] [facility] DICTATED AND SIGNED BY: OSBALDO HICKS MD DATE: 11/18/17 0241 CC: BAL CHAPA MD; MARCELA MIXON MD ~ Course & Med Decision Making Course & Med Decision Making Pertinent Labs and Imaging studies reviewed. (See chart for details) []STRESS TEST FROM 10/08: Conclusion 1. No evidence of stress induced EKG changes. 2. Anterior and apical reversible perfusion defects suggestive of impaired perfusion reserve. 3. Normal EF at 55% 4. Moderate risk study Recommendations Consider coronary angiography based on symptoms. Signed by : Zane Medina, Electronically Approved : 10/08/2017 15:13:51 66-year-old female with a history of A. 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 Overall clinical picture appears to be mostly reproducible pain I suspect there is a large component of some postoperative sternal type pain. However she did have an equivocal stress test as noted above she has risk factors for coronary artery disease and she will be admitted to the service of Dr. Yanes spoke with him at 3:20 AM. Noted the d-dimer 0.56 under the current age-adjusted d-dimer cutoff she is within normal range and is much much much lower than she has been in the recent past she is on EllIQUIS and she has had 2 CT scans in the past few months DEFER FURTHER TESTING ON THAT FOR NOW. J Thromb Haemost. 2012 Nov;10(7):1291-6. doi: 10.1111/j.7798-3901.2012.50049.x. Performance of age-adjusted D-dimer cut-off to rule out pulmonary embolism. Dragon Disclaimer Dragon Disclaimer This electronic medical record was generated, in whole or in part, using a voice recognition dictation system. Departure Departure: Impression: Primary Impression: Chest pain Disposition: ADMITTED INPATIENT Admitting Physician: Bal Chapa Condition: STABLE Referrals: BAL CHAPA MD (PCP) MARCELA MIXON MD Nov 18, 2017 02:07
[2017-11-18 02:35] LABS: BASO # 0.1 x10^3/uL (0.0-0.2); BASO % 1 % (0-3); EOS # 0.3 x10^3/uL (0.0-0.7); EOS % 3 % (0-3); HEMATOCRIT 44.2 % (36.0-47.0); HEMOGLOBIN 14.5 g/dL (12.0-15.5); LYMPH # 2.6 x10^3/uL (1.0-4.8); LYMPH % 31 % (24-48); MEAN CORPUSCULAR HEMOGLOBIN 27 pg (25-35); MEAN CORPUSCULAR HGB CONC 33 g/dL (31-37); MEAN CORPUSCULAR VOLUME 82 fL (79-100); MONO # 0.4 x10^3/uL (0.0-1.1); MONO % 5 % (0-9); NEUT % 60 % (31-73); PLATELET COUNT 317 x10^3/uL (140-400); RED BLOOD COUNT 5.39 x10^6/uL (3.50-5.40); RED CELL DISTRIBUTION WIDTH 18.2 % (11.5-14.5); WHITE BLOOD COUNT 8.4 x10^3/uL (4.0-11.0)
[2017-11-18 02:42] LABS: ALBUMIN 3.7 g/dL (3.4-5.0); ALBUMIN/GLOBULIN RATIO 0.8 (1.0-1.7); CALCIUM 9.8 mg/dL (8.5-10.1); CREATININE 1.3 mg/dL (0.6-1.0); GFR 41.2; POTASSIUM 4.1 mmol/L (3.5-5.1); TOTAL BILIRUBIN 0.4 mg/dL (0.2-1.0); TOTAL PROTEIN 8.4 g/dL (6.4-8.2)
--- NOTE | 2017-11-18 02:46 | RAD ---
EXAM: CHEST 1 VIEW. HISTORY: Chest and right shoulder pain. Cough. COMPARISON: September 28, 2017, August 28, 2017. FINDINGS: A frontal view of the chest is obtained. There are changes of coronary artery bypass grafting. The right hemidiaphragm is moderately elevated with right basilar atelectasis. There is mild atelectasis in the left midlung. There is no pneumothorax or clear pleural effusion. The heart is not enlarged. IMPRESSION: 1. Moderate elevation of the right hemidiaphragm with right greater than left basilar atelectasis. Electronically signed by: Lary Hicks MD (11/18/2017 2:43 AM) [id number]
[2017-11-18] MEDS ORDERED: NITROGLYCERIN SUBLINGUAL 0.4 MG BOTTLE OF 25. SL PRN (03:30)
[2017-11-18 04:08] VITALS: BP 123/88
[2017-11-18] MEDS ORDERED: POTA10TA10 PO (04:18)
[2017-11-18] MEDS ORDERED: BUSP15TA PO (04:18)
[2017-11-18] MEDS ORDERED: PARO30TA3 PO (04:18)
[2017-11-18] MEDS ORDERED: ALPR0.254 PO (04:18)
[2017-11-18] MEDS ORDERED: BUME1TAB PO (04:18)
--- NOTE | 2017-11-18 04:31 | NUR ---
The patient, ENDY NIELSEN, 66 y/o, F admitted by BAL CHAPA MD, was given written information regarding hospital policies, unit procedures and contact persons. Patient admitted from the ER, got verbal report from nurse Sissy. Patient states that she was having this chest pain off and on for a few days and she just got very anxious and thought that she was having a heart attack. Patient is alert and oriented and states that she walks independently at home. Valuables were checked and left at bedside.
--- NOTE | 2017-11-18 06:27 | EKG ---
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
[2017-11-18] MEDS ORDERED: APIXABAN 5 MG TABLET. PO SCH (09:00)
[2017-11-18] MEDS ORDERED: BUMETANIDE 1 MG TABLET PO SCH (09:00)
[2017-11-18] MEDS ORDERED: ALPRAZolam 0.25 MG TABLET PO PRN (09:00)
[2017-11-18] MEDS ORDERED: MECLIZINE 12.5 MG TABLET. PO PRN (09:00)
[2017-11-18] MEDS ORDERED: LEVOTHYROXINE 100 MCG TABLET PO SCH (09:00)
[2017-11-18] MEDS ORDERED: SENNOSIDES 8.6 MG TABLET PO PRN (09:15)
[2017-11-18] MEDS ORDERED: busPIRone 10 MG TABLET. PO SCH (09:15)
[2017-11-18] MEDS ORDERED: busPIRone 15 MG TABLET. PO SCH (09:30)
[2017-11-18] MEDS ORDERED: POTASSIUM CHLORIDE 10 MEQ TABLET.ER. PO SCH (09:30)
--- NOTE | 2017-11-18 11:01 | PDOC2 ---
CONSULT Date of Admission DATE: 11/18/17 TIME: 10:51 Reason for Consult: cp History of Present Illness Ms Clemente is a pleasant 66-year-old woman with past medical history of presumed thoracic mass s/p resection at [facility], presumed post op atrial fibrillation and recent admission for atypical chest pain. She presents, this admission, with chest pain off and on for about a week. Yesterday the discomfort was constant so she presented for evaluation. She describes midsternal chest pressure as well as sharp pain that radiates to her right shoulder with associated arm numbness. She Denies any increase with exertion, movement or deep inspiration. She is significantly tender at RSB to palpation. She does report improvement in her pain with NTG given by EMS and again in ED. She does say that this pain is similar to her prior admission. She reports chronic fatigue, denies congestive symptoms, denies palpitations, lightheadedness or syncope. Past Medical History 06/24/17 Echo normal LV function and wall motion 10/01/17 MPI Conclusion 1. No evidence of stress induced EKG changes. 2. Anterior and apical reversible perfusion defects suggestive of impaired perfusion reserve. 3. Normal EF at 55% 4. Moderate risk study 1. Presumed thoracic mass, status post resection at [facility]. 2. Anxiety. 3. Recent pneumonia. 4. History of hyperparathyroidism. 5. Anemia of chronic disease. 6. Presumed atrial fibrillation, probably postoperative currently on amiodarone and Eliquis therapies. 7. Probable mild hypertension. Past Surgical History recent thoracotomy for chest mass Family History: Cancer, Heart Disease, Other (emphysema, CHF) Social History no alcohol, tobacco or illicit drug use. Current Medications Current Medications Fentanyl Citrate (Fentanyl 2ml Vial) 50 mcg 1X ONCE IV Last administered on at 02:48; Start 11/18/17 at 02:30; Stop 11/18/17 at 02:51; Status DC Nitroglycerin (Nitrostat) 0.4 mg PRN Q5MIN PRN SL CHEST PAIN; Start 11/18/17 at 03:30; Stop 11/19/17 at 03:29 Levothyroxine Sodium (Synthroid) 100 mcg DAILY07 PO Last administered on at 09:30; Start 11/18/17 at 09:00 Alprazolam (Xanax) 0.25 mg Q6HRS PRN PO ANXIETY / AGITATION; Start 11/18/17 at 09:00 Apixaban (Eliquis) 5 mg BID PO Last administered on 11/18/17at 09:30; Start at 09:00 Bumetanide (Bumex) 1 mg DAILY PO Last administered on 11/18/17at 09:30; Start at 09:00 Buspirone HCl (Buspar) 10 mg BID PO ; Start 11/18/17 at 09:15; Status Cancel Buspirone HCl (Buspar) 15 mg BID PO Last administered on 11/18/17at 09:30; Start 11/18/17 at 09:30 Cyclobenzaprine HCl (Flexeril) 5 mg QHS PO ; Start 11/18/17 at 21:00 Meclizine HCl (Antivert) 25 mg QHS PRN PO DIZZINESS; Start 11/18/17 at 09:00 Metoprolol Succinate (Toprol Xl) 50 mg HS PO ; Start 11/18/17 at 21:00 Paroxetine HCl (Paxil) 20 mg HS PO ; Start 11/18/17 at 21:00; Stop 11/18/17 at 21:00; Status DC Non-Formulary Medication (Paroxetine Hcl ) 1 tab HS PO ; Start 11/18/17 at 21:00 ; Status UNV Potassium Chloride (Klor-Con) 10 meq DAILYWBKFT PO Last administered on at 09:30; Start 11/18/17 at 09:30 Sennosides (Senna) 8.6 mg PRN DAILY PRN PO CONSTIPATION; Start 11/18/17 at 09: 15 Paroxetine HCl (Paxil) 30 mg HS PO ; Start 11/18/17 at 21:00 Active Scripts Active Reported Paroxetine Hcl 30 Mg Tablet 1 Tab PO HS Buspirone Hcl 15 Mg Tablet 1 Tab PO DAILY Bumetanide 1 Mg Tablet 1 Mg PO DAILY Potassium Chloride 10 Meq Tablet.er 10 Meq PO DAILY Alprazolam 0.25 Mg Tablet 25 Mg PO Q6HRS PRN Meclizine Hcl 25 Mg Tab.chew 25 Mg PO QHS PRN LAST DOSE GIVEN: DATE: YESTERDAY TIME: AT BEDTIME NEXT DOSE DUE: DATE: TODAY TIME: AT BEDTIME Senna (Sennosides) 8.6 Mg Tablet 8.6 Mg PO PRN DAILY PRN LAST DOSE GIVEN: DATE: TODAY TIME: AM NEXT DOSE DUE: DATE: TOMORROW TIME: IF NEEDED Cyclobenzaprine Hcl 5 Mg Tablet 5 Mg PO HS LAST DOSE GIVEN: DATE: YESTERDAY TIME: BEDTIME NEXT DOSE DUE: DATE: TODAY TIME: BEDTIME Eliquis (Apixaban) 5 Mg Tablet 5 Mg PO BID LAST DOSE GIVEN: DATE: TIME: AM NEXT DOSE DUE: DATE: TODAY TIME: PM Metoprolol Succinate ( Xl ) (Metoprolol Succinate) 50 Mg Tab.er.24h 50 Mg PO HS LAST DOSE GIVEN: DATE: YESTER TIME: BEDTIME NEXT DOSE DUE: DATE: TODAY TIME: BEDTIME Levothyroxine Sodium 100 Mcg Tablet 100 Mcg PO DAILY LAST DOSE GIVEN: DATE: TODAY TIME: AM NEXT DOSE DUE: DATE: TOMORROW TIME: AM Allergies: Coded Allergies: No Known Drug Allergies (Unverified , 11/18/17) Review of System as per HPI or negative General: Alert, Oriented X3, Cooperative, No acute distress HEENT: Atraumatic, EOMI Lungs: Other (decreased bases bilaterally) Heart: Regular rate, Normal S1, Normal S2, Other (no gallops, clicks or rubs, significant chest wall tenderness) Abdomen: Normal bowel sounds, Soft, No tenderness Extremities: No cyanosis, Normal pulses Neuro: Normal speech, Strength at 5/5 X4 ext VITALS Vital Signs Date Time Temp Pulse Resp B/P (MAP) Pulse Ox O2 Delivery O2 Flow Rate FiO2 11/18/17 04:20 Room Air 11/18/17 04:08 97.5 67 20 123/88 (100) 97 11/18/17 03:27 2.0 Labs Laboratory Tests Test 11/18/17 02:04 11/18/17 06:19 11/18/17 09:05 White Blood Count 8.4 x10^3/uL (4.0-11.0) Red Blood Count 5.39 x10^6/uL (3.50-5.40) Hemoglobin 14.5 g/dL (12.0-15.5) Hematocrit 44.2 % (36.0-47.0) Mean Corpuscular Volume 82 fL (79-100) Mean Corpuscular Hemoglobin 27 pg (25-35) Mean Corpuscular Hemoglobin Concent 33 g/dL (31-37) Red Cell Distribution Width 18.2 % (11.5-14.5) Platelet Count 317 x10^3/uL (140-400) Neutrophils (%) (Auto) 60 % (31-73) Lymphocytes (%) (Auto) 31 % (24-48) Monocytes (%) (Auto) 5 % (0-9) Eosinophils (%) (Auto) 3 % (0-3) Basophils (%) (Auto) 1 % (0-3) Neutrophils # (Auto) 5.0 x10^3uL (1.8-7.7) Lymphocytes # (Auto) 2.6 x10^3/uL (1.0-4.8) Monocytes # (Auto) 0.4 x10^3/uL (0.0-1.1) Eosinophils # (Auto) 0.3 x10^3/uL (0.0-0.7) Basophils # (Auto) 0.1 x10^3/uL (0.0-0.2) Prothrombin Time 9.5 SEC (9.4-11.4) Prothromb Time International Ratio 0.9 (0.9-1.1) D-Dimer (Madisyn) 0.56 mg/L (0.00-0.50) Sodium Level 136 mmol/L (136-145) Potassium Level 4.1 mmol/L (3.5-5.1) Chloride Level 100 mmol/L (98-107) Carbon Dioxide Level 30 mmol/L (21-32) Anion Gap 6 (6-14) Blood Urea Nitrogen 22 mg/dL (7-20) Creatinine 1.3 mg/dL (0.6-1.0) Estimated GFR (Cockcroft-Gault) 41.2 BUN/Creatinine Ratio 17 (6-20) Glucose Level 115 mg/dL (70-99) Calcium Level 9.8 mg/dL (8.5-10.1) Total Bilirubin 0.4 mg/dL (0.2-1.0) Aspartate Amino Transf (AST/SGOT) 29 U/L (15-37) Alanine Aminotransferase (ALT/SGPT) 30 U/L (14-59) Alkaline Phosphatase 135 U/L (46-116) Troponin I Quantitative < 0.017 ng/mL (0-0.055) < 0.017 ng/mL (0-0.055) < 0.017 ng/mL (0-0.055) Total Protein 8.4 g/dL (6.4-8.2) Albumin 3.7 g/dL (3.4-5.0) Albumin/Globulin Ratio 0.8 (1.0-1.7) Images CXR - IMPRESSION: 1. Moderate elevation of the right hemidiaphragm with right greater than left basilar atelectasis. Assessment/Plan 1. chest pain, atypical - AR ruled out. Recent abnormal MPI however so will arrange for transfer to [facility] for cardiac cath. Continue medical therapy. 2. Presumed postoperative atrial fibrillation, hold anticoagulation for heart cath and resume after, continue rate control. 3. renal insufficiency, chronic - mild 4. hypothyroidism - per PCP MICHELL CASTANEDA APRN Nov 18, 2017 11:01
[2017-11-18 11:05] VITALS: BP 102/69
--- NOTE | 2017-11-18 14:52 | NUR ---
Discharge Note: ENDY NIELSEN J1 [facility] Discharge instructions and discharge home medications reviewed with OUSMANE DOE RN, and a copy given. All questions have been answered and understanding verbalized. The following instructions and handouts were given: MEDICATIONS, LABS, IMAGING, AND PLAN OF CARE Discontinued lines and drains: PERIPHERAL IV LEFT IN PLACE FOR USE AT [facility]. Patient discharged to [facility] via EMS.
[2017-11-18] MEDS ORDERED: METOPROLOL SUCC 24HR ER 50 MG TAB.ER.24H. PO SCH (21:00)
[2017-11-18] MEDS ORDERED: CYCLOBENZAPRINE 10 MG TABLET. PO SCH (21:00)
[2017-11-18] MEDS ORDERED: NON FORMULARY ITEM (Paroxetine Hcl 1 TAB) PO SCH (21:00)
[2017-11-18] MEDS ORDERED: PARoxetine 20 MG TABLET PO SCH ×2 (21:00)
--- NOTE | 2017-11-21 10:27 | HP ---
ADMIT DATE: 11/18/2017 HISTORY OF PRESENT ILLNESS: A 66-year-old female came in through the Emergency Room with intermittent chest pain. The patient was brought in via EMS and was given an aspirin. The patient noted that she had a constant pain along the lateral side of her incision radiating down her right arm. She was driving when she had some of the pain. She had a previous history of a mediastinal mass removed at [facility]. 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 VACCINATION: Pneumococcal vaccination is up-to-date. FAMILY HISTORY: Lung cancer in a brother. Father with heart disease. Mother with emphysema. Heart failure, grandparents and mother. ALLERGIES: No known drug allergies. HOME MEDICATIONS: Include cyclobenzaprine 5 mg 3 times a day, Eliquis 5, metoprolol 50 mg, Paxil, Xanax 0.25, BuSpar 15, potassium chloride, ____ 1 mg daily, Senokot, meclizine, and levothyroxine 100 mcg daily. SOCIAL HISTORY: The patient denies smoking, alcohol or drug use. SOCIAL HISTORY: The patient is a current smoker. She was encouraged to stop smoking several times. Occasional alcohol, but now chewing tobacco. REVIEW OF SYSTEMS: The patient denies any headaches, visual change, blurred vision, or double vision. Does have some mild shortness of breath and chest pain as noted. Neurologically, the patient was alert and stable there. PHYSICAL EXAMINATION: GENERAL: This is a very, very pleasant white female, in moderate amount of pain. VITAL SIGNS: Blood pressure that of 110/50, respiratory rate 20, pulse 75, afebrile. HEENT: The patient's head was atraumatic, normocephalic. Eyes: PERRLA without jaundice. Mouth and throat were normal. NECK: Supple without JVD, carotid bruits or thyromegaly. LUNGS: Diminished throughout, but clear. CARDIOVASCULAR: Regular sinus rhythm, S1, S2, without murmur, rub, thrill, or extra heart sounds. ABDOMEN: Soft, nontender. No rebound or guarding. Positive bowel sounds. No hepatosplenomegaly was noted. EXTREMITIES: No clubbing, cyanosis, or edema. NEUROLOGIC: The patient was alert and oriented x 3. Speech was fluent, spontaneous, and appropriate. Cranial nerves 2-12 were grossly intact. PLAN: The patient will be admitted for rule out myocardial infarction, make further evaluation on her as indicated and make adjustments according to her medications. Consult Cardiology. IMPRESSION: Chest pain, unknown etiology. Make further evaluation as indicated per those results. BAL CHAPA MD DR: ANJALI/devin JOB#: [id number] / [id number]
== END 2017-11-18 14:55 | disposition short-term general hospital (02) ==
LOC: ER 01:50 → INTOOBSV 03:20 → 1 SOUTH 03:20
PROVIDERS: ADMIT Family Medicine; ATTEND Family Medicine
DX: R07.89 Other chest pain (principal); D63.8 Anemia in other chronic diseases classified elsewhere; E03.9 Hypothyroidism, unspecified; F17.200 Nicotine dependence, unspecified, uncomplicated; I12.9 Hypertensive chronic kidney disease with stage 1 through stage 4 chronic kidney disease, or unspecified chronic kidney disease; I48.91 Unspecified atrial fibrillation; N18.9 Chronic kidney disease, unspecified; Z80.1 Family history of malignant neoplasm of trachea, bronchus and lung; Z82.49 Family history of ischemic heart disease and other diseases of the circulatory system; Z82.5 Family history of asthma and other chronic lower respiratory diseases; Z87.01 Personal history of pneumonia (recurrent); J98.11 Atelectasis
CPT/HCPCS: 36415; 71045; 80053; 84484; 85025; 85379; 85610; 93005; 96374; 99285; G0378; J3010; G0379

== ENCOUNTER 2018-09-10 11:52 | Inpatient (IN) | payer MEDICARE, OTHER ==
[~2018-09-10] VITALS: Ht 160 cm; Wt 80.0 kg
[~2018-09-10 11:52] MED LIST changes: +ALPR0.254 PO; +BUME1TAB PO; +BUSP15TA PO; +PARO30TA3 PO; +POTA10TA10 PO; -SENN-79 PO; +SENN-80 PO
[2018-09-10 12:48] VITALS: BP 127/85
[2018-09-10] MEDS ORDERED: VORT5TAB PO (14:02)
[2018-09-10] MEDS ORDERED: ONDANSETRON ODT 4 MG TAB.RAPDIS PO PRN (15:00)
[2018-09-10] MEDS ORDERED: ACETAMINOPHEN 325 MG TABLET PO PRN (15:00)
[2018-09-10 15:33] LABS: BASO # 0.1 x10^3/uL (0.0-0.2); BASO % 1 % (0-3); EOS # 0.1 x10^3/uL (0.0-0.7); EOS % 1 % (0-3); HEMOGLOBIN 13.3 g/dL (12.0-15.5); LYMPH # 1.3 x10^3/uL (1.0-4.8); LYMPH % 13 % (24-48); MEAN CORPUSCULAR HEMOGLOBIN 28 pg (25-35); MEAN CORPUSCULAR HGB CONC 33 g/dL (31-37); MEAN CORPUSCULAR VOLUME 84 fL (79-100); MONO # 0.4 x10^3/uL (0.0-1.1); MONO % 4 % (0-9); NEUT # 8.2 x10^3uL (1.8-7.7); NEUT % 81 % (31-73); PLATELET COUNT 189 x10^3/uL (140-400); RED BLOOD COUNT 4.76 x10^6/uL (3.50-5.40); RED CELL DISTRIBUTION WIDTH 15.1 % (11.5-14.5); WHITE BLOOD COUNT 10.1 x10^3/uL (4.0-11.0)
[2018-09-10] MEDS: methylPREDNISolone SOD SUCC PF 40 MG/ML VIAL. IV SCH ×2 (15:40→21:47)
[2018-09-10] MEDS: IV NORMAL SALINE 1,000ML 1,000 ML IV SCH (15:40)
[2018-09-10 15:44] VITALS: BP 136/68
[2018-09-10] MEDS: IPRATRPIUM/ALBUTEROL 0.5/2.5MG 3 ML NEBU. NEB SCH ×2 (15:45→20:23)
[2018-09-10 15:52] LABS: ALBUMIN 3.3 g/dL (3.4-5.0); ALBUMIN/GLOBULIN RATIO 0.8 (1.0-1.7); CALCIUM 9.3 mg/dL (8.5-10.1); CREATININE 1.1 mg/dL (0.6-1.0); GFR 49.8; POTASSIUM 3.8 mmol/L (3.5-5.1); TOTAL BILIRUBIN 0.6 mg/dL (0.2-1.0); TOTAL PROTEIN 7.2 g/dL (6.4-8.2)
--- NOTE | 2018-09-10 16:00 | RAD ---
CT of the chest without contrast, 09/10/2018: HISTORY: Shortness of breath, chest pain Noncontrast scans were obtained and compared to a study from 09/28/2017. There has been a previous median sternotomy. There are multiple surgical clips in the anterior mediastinum. The thoracic aorta is of normal caliber. There are calcified mediastinal and right hilar lymph nodes compatible with old granulomatous disease. No mediastinal adenopathy is seen. There is a 7 mm noncalcified nodule in the posterior aspect of the right lower lobe as seen on image 31 of series #2. It appears unchanged since 09/28/2017. There are multiple linear parenchymal opacities in both lungs suggesting atelectasis and/or scarring. Some of these were present on the previous study. There was a greater degree of atelectasis in the lung bases on the previous study. No dense pulmonary consolidation is currently seen. There is no evidence of pleural fluid. A gallstone is evident in the gallbladder. No pericholecystic edema is seen. IMPRESSION: 1. Several linear opacities in both lungs are compatible with scarring and/or atelectasis.. 2. Unchanged small right lower lobe pulmonary nodule. 3. Cholelithiasis. PQRS Compliance Statement: One or more of the following individualized dose reduction techniques were utilized for this examination: 1. Automated exposure control 2. Adjustment of the mA and/or kV according to patient size 3. Use of iterative reconstruction technique Electronically signed by: Carter Haas MD (09/10/2018 3:57 PM) [facility]
[2018-09-10 20:03] VITALS: BP 120/76
[2018-09-10] MEDS: APIXABAN 5 MG TABLET. PO SCH (21:47)
[2018-09-10 23:19] VITALS: BP 121/70
[2018-09-11 05:34] VITALS: BP 124/68
[2018-09-11] MEDS: methylPREDNISolone SOD SUCC PF 40 MG/ML VIAL. IV SCH ×3 (05:43→20:45)
[2018-09-11] MEDS: IV NORMAL SALINE 1,000ML 1,000 ML IV SCH ×2 (05:43→16:50)
[2018-09-11] MEDS: IPRATRPIUM/ALBUTEROL 0.5/2.5MG 3 ML NEBU. NEB SCH ×4 (05:43→20:04)
[2018-09-11 06:46] LABS: BASO % 0 % (0-3); EOS % 0 % (0-3); HEMATOCRIT 39.9 % (36.0-47.0); HEMOGLOBIN 13.1 g/dL (12.0-15.5); LYMPH # 1.1 x10^3/uL (1.0-4.8); LYMPH % 10 % (24-48); MEAN CORPUSCULAR HEMOGLOBIN 28 pg (25-35); MEAN CORPUSCULAR HGB CONC 33 g/dL (31-37); MEAN CORPUSCULAR VOLUME 84 fL (79-100); MONO # 0.1 x10^3/uL (0.0-1.1); MONO % 1 % (0-9); NEUT # 10.5 x10^3uL (1.8-7.7); NEUT % 90 % (31-73); PLATELET COUNT 205 x10^3/uL (140-400); RED BLOOD COUNT 4.73 x10^6/uL (3.50-5.40); WHITE BLOOD COUNT 11.7 x10^3/uL (4.0-11.0)
[2018-09-11 06:50] LABS: CALCIUM 9.5 mg/dL (8.5-10.1); CREATININE 1.1 mg/dL (0.6-1.0); GFR 49.8; POTASSIUM 3.9 mmol/L (3.5-5.1)
[2018-09-11] MEDS: NON FORMULARY ITEM (Vortioxetine Hydrobromide (Trintellix) 5 MG) PO SCH (09:00)
[2018-09-11] MEDS: APIXABAN 5 MG TABLET. PO SCH ×2 (09:22→20:45)
[2018-09-11] MEDS: LEVOTHYROXINE 100 MCG TABLET PO SCH (09:22)
[2018-09-11 12:08] VITALS: BP 115/75
[2018-09-11 15:54] VITALS: BP 107/64
[2018-09-11 19:31] VITALS: BP 127/71
[2018-09-11] MEDS: LACTOBACILLUS RHAMNOSUS GG 1 CAPSULE. PO SCH (20:45)
[2018-09-11 23:10] VITALS: BP 122/77
[2018-09-12] MEDS: IPRATRPIUM/ALBUTEROL 0.5/2.5MG 3 ML NEBU. NEB SCH ×4 (05:05→20:24)
[2018-09-12 05:12] VITALS: BP 132/88
[2018-09-12] MEDS: methylPREDNISolone SOD SUCC PF 40 MG/ML VIAL. IV SCH ×3 (06:04→21:23)
[2018-09-12] MEDS: LEVOTHYROXINE 100 MCG TABLET PO SCH (06:04)
[2018-09-12] MEDS: LACTOBACILLUS RHAMNOSUS GG 1 CAPSULE. PO SCH ×2 (08:10→21:22)
[2018-09-12] MEDS: APIXABAN 5 MG TABLET. PO SCH ×2 (08:10→21:22)
[2018-09-12] MEDS: IV NORMAL SALINE 1,000ML 1,000 ML IV SCH ×2 (08:11→20:20)
[2018-09-12] MEDS: NON FORMULARY ITEM (Vortioxetine Hydrobromide (Trintellix) 5 MG) PO SCH (08:12)
[2018-09-12 10:35] VITALS: BP 142/67
[2018-09-12 14:44] VITALS: BP 137/76
[2018-09-12 19:30] VITALS: BP 147/92
[2018-09-12 22:20] VITALS: BP 142/73
[2018-09-13] MEDS: IPRATRPIUM/ALBUTEROL 0.5/2.5MG 3 ML NEBU. NEB SCH ×4 (05:16→20:10)
[2018-09-13] MEDS: IV NORMAL SALINE 1,000ML 1,000 ML IV SCH (05:27)
[2018-09-13] MEDS: methylPREDNISolone SOD SUCC PF 40 MG/ML VIAL. IV SCH ×2 (05:27→20:00)
[2018-09-13] MEDS: LEVOTHYROXINE 100 MCG TABLET PO SCH (05:27)
[2018-09-13 05:59] VITALS: BP 137/79
[2018-09-13] MEDS: APIXABAN 5 MG TABLET. PO SCH ×2 (08:59→20:00)
[2018-09-13] MEDS: LACTOBACILLUS RHAMNOSUS GG 1 CAPSULE. PO SCH ×2 (08:59→20:00)
[2018-09-13] MEDS: NON FORMULARY ITEM (Vortioxetine Hydrobromide (Trintellix) 5 MG) PO SCH (09:00)
[2018-09-13] MEDS ORDERED: traZODone 50 MG TABLET. PO PRN (10:30)
[2018-09-13 12:25] VITALS: BP 151/87
[2018-09-13 15:30] VITALS: BP 145/79
[2018-09-13 19:55] VITALS: BP 144/83
[2018-09-14 00:10] LABS: HEMOGLOBIN A1C 5.7 % (4.8-5.6)
--- NOTE | 2018-09-14 01:01 | PN ---
DATE: SUBJECTIVE: The patient is in with acute exacerbation of COPD. The patient is resting fairly comfortably and we will continue to be monitored carefully on that situation there. The patient's lungs are diminished, but markedly improved. Moving air better. The patient is still having severe bronchospasm. We will taper down on her Solu-Medrol. OBJECTIVE: VITAL SIGNS: Blood pressure 140/80, respiratory rate 20, pulse 80, afebrile. GENERAL: The patient is alert and oriented. LUNGS: Diminished throughout, poor movement of air. CARDIOVASCULAR: Regular sinus rhythm. IMPRESSION: 1. Acute exacerbation of chronic obstructive pulmonary disease with hypoxia and chronic kidney disease stage 3. 2. Hyperglycemia. 3. Moderate protein malnutrition. BAL CHAPA MD DR: ANJALI/nts JOB#: [id number] / [id number]
[2018-09-14] MEDS: IPRATRPIUM/ALBUTEROL 0.5/2.5MG 3 ML NEBU. NEB SCH ×2 (05:05→12:07)
[2018-09-14] MEDS: LEVOTHYROXINE 100 MCG TABLET PO SCH (05:19)
[2018-09-14 06:07] VITALS: BP 128/83
[2018-09-14] MEDS: methylPREDNISolone SOD SUCC PF 40 MG/ML VIAL. IV SCH (08:25)
[2018-09-14] MEDS: LACTOBACILLUS RHAMNOSUS GG 1 CAPSULE. PO SCH (08:25)
[2018-09-14] MEDS: APIXABAN 5 MG TABLET. PO SCH (08:25)
[2018-09-14] MEDS: NON FORMULARY ITEM (Vortioxetine Hydrobromide (Trintellix) 5 MG) PO SCH (08:30)
[2018-09-14 11:22] VITALS: BP 150/105
[2018-09-14] MEDS ORDERED: TRAZ-120 PO (11:36)
[2018-09-14] MEDS ORDERED: IPRA3AMP29 NEB (11:36)
[2018-09-14] MEDS ORDERED: PRED-220 PO (11:36)
--- NOTE | 2018-09-14 17:51 | DS ---
DATE OF DISCHARGE: 09/14/2018 HOSPITAL COURSE: The patient came in. She was extremely short of breath, asthma-like picture. The patient made good progress during the rest of her hospitalization with steroids and breathing treatments. The patient's CT scan of the chest showed some opacities and atelectasis, otherwise unchanged right lower lobe nodule. The patient made good progress during the rest of her hospitalization and there were no complications noted. Her blood pressure did vacillate sometimes it was as high as 150/80. Other times, came down to approximately 130/80. That will be followed up as an outpatient. The patient's chemistry showed a hemoglobin A1c of 5.7 and moderate protein malnutrition. IMPRESSION: [id number] of chronic obstructive pulmonary disease with asthmatic component, chronic kidney disease stage 3, hyperglycemia and moderate-protein malnutrition. PLAN: As above, continue to monitor the patient accordingly as an outpatient on the above-mentioned, she will be on a diabetic diet and breathing treatments, steroids. See MRAD. Decreased activity. Trazodone was started to help her sleep at night. BAL CHAPA MD DR: ANJALI/devin JOB#: [id number] / [id number]
== END 2018-09-14 13:30 | disposition home or self-care (01) | DRG 190 ==
LOC: 1 SOUTH 12:07
PROVIDERS: ADMIT Family Medicine; ATTEND Family Medicine
DX: J44.1 Chronic obstructive pulmonary disease with (acute) exacerbation (principal); J18.8 Other pneumonia, unspecified organism; J98.11 Atelectasis; E44.0 Moderate protein-calorie malnutrition; N18.3 Chronic kidney disease, stage 3 (moderate); R09.02 Hypoxemia; Z79.899 Other long term (current) drug therapy; Z82.49 Family history of ischemic heart disease and other diseases of the circulatory system; R73.9 Hyperglycemia, unspecified; Z68.31 Body mass index [BMI] 31.0-31.9, adult
CPT/HCPCS: 36415; 71250; 80048; 80053; 83036; 83605; 83880; 85025; 87040; 94640; J0696; J2920; J7620; J7030

== ENCOUNTER 2019-04-03 18:31 | Inpatient (IN) | payer MEDICARE ==
[~2019-04-03] VITALS: Ht 160 cm; Wt 83.5 kg
[~2019-04-03 18:31] MED LIST changes: -BUME1TAB PO; +BUME1TAB3 PO; +PRED-220 PO; +TRAZ-120 PO; +VORT5TAB PO
--- NOTE | 2019-04-03 18:38 | PHYS DOC ---
Past History Past Medical History: A-Fib, Anemia, Anxiety, DVT, Hypertension, Hypothyroid, Pneumonia, Other Past Surgical History: Other Alcohol Use: None Drug Use: None Adult General Chief Complaint Chief Complaint: MECHANICAL FALL.." I was haviing a good time.. out with my friend.. we had a couple [employer].. maybe more.. .and I fell of the bar stool.. My Lt flank and Lt hip hurts...".. " I don't know really what happened.. I just baldemar blacked out.. and next thing I know I was on the floor. I just having a grea time at the " [employer] place... . HPI HPI Patient is a 68 year old female who presents with above hx and complaints syncope and fall off bar stool. Patient appears to have a syncopal event prior to the fall. Patient presents with complaints of hitting head, left side of chest and left hip pain. Patient unsure what happened prior to the fall. Patient does admit to drinking rather heavily for her stating she is normally a teetotaler and it does not take much to make or drunk. Patient does have somewhat complicated medical history. Patient has had previous DVT and PE in 1975. Patient is currently on Eliquis 10 mg once a day. Patient had a started on the wy for a thyroid mass which was found to be benign in 2018, for thereafter she did have a stent or coronary arteries for any artery disease, patient did quit smoking for approximately a year. She is now has resumed smoking. Patient had somewhat of significant head injury approximately 3 years ago during a fall on the way home. Pt. follows with Dr. Chapa. Review of Systems Review of Systems Constitutional: Denies fever or chills [] Eyes: Denies change in visual acuity, redness, or eye pain [] HENT: Denies nasal congestion or sore throat [] Respiratory: Denies cough or shortness of breath [] Cardiovascular: No additional information not addressed in HPI [] GI: Denies abdominal pain, nausea, vomiting, bloody stools or diarrhea [] : Denies dysuria or hematuria [] Musculoskeletal: Denies back pain or joint pain []. Patient has complaints of left chest wall and left hip contusion and pain Integument: Denies rash or skin lesions [] Neurologic: Denies headache, focal weakness or sensory changes . Patient has []complaints of syncope Endocrine: Denies polyuria or polydipsia [] All other systems were reviewed and found to be within normal limits, except as documented in this note. Family History Family History Noncontributory to presentation Current Medications Current Medications See nursing for home meds Allergies Allergies Allergies Coded Allergies Type Severity Reaction Last Updated Verified No Known Drug Allergies 11/18/17 No Physical Exam Physical Exam Constitutional: Moderate acute distress, non-toxic appearance. [] HENT: Normocephalic, atraumatic, bilateral external ears normal, oropharynx moist, no oral exudates, nose normal. []Old scar bridge of nose. Eyes: PERRLA, EOMI, conjunctiva normal, no discharge. [] Neck: Normal range of motion, no tenderness, supple, no stridor. [] Cardiovascular:Heart rate regular rhythm, no murmur [] Lungs & Thorax: Bilateral breath sounds equal apexes with scatted wheezes on auscultation []Mid line scar. Lt chest wall tenderness Abdomen: Bowel sounds normal, soft, , no masses, no pulsatile masses. []Lt. upper quadrant tenderness. Old scar. Skin: Warm, dry, no erythema, no rash. [] Back: No tenderness, Lt. CVA tenderness. [] Extremities: Lt hip tenderness, no cyanosis, no clubbing, ROM intact, []Rt. ankle and leg edema. Neurologic: Alert and oriented X 3, normal motor function, normal sensory function, no focal deficits noted. []DTR + 2 patella and brachial. No drift. Psychologic: Affect normal, judgement normal, mood normal. [] EKG EKG I interpretation EKG shows a sinus rate of 70 bpm. SI and Q III. no findings acute STEMI of contralateral changes.[] Radiology/Procedures Radiology/Procedures [address] [address] IMAGING REPORT Signed PATIENT: ENDY NIELSEN ACCOUNT: [id number] : 1950 LOCATION: ER AGE: 68 SEX: F EXAM STATUS: REG ER ORD. PHYSICIAN: GHISLAINE SHEEHAN MD REASON: Fall off barstool, left hip pain PROCEDURE: HIP LEFT 2V WITH PELVIS AP pelvis to include AP and lateral radiographs left hip 23/01/2019 CLINICAL HISTORY: Fall with left hip pain. An AP digital radiograph of the pelvis to include both hips was obtained. AP and lateral digital radiographs of the left hip were obtained. Comparison is made to an acute abdominal series dated 08/29/2017. Tubal ligation clips overlie the pelvis. Calcifications are seen within the pelvis consistent with phleboliths. No pelvic bone fracture is seen. Both hips are intact. Specifically no fracture or dislocation left hip is seen. Mild degenerative changes are seen involving both SI joints and both hips. A sclerotic lesion is seen involving the intertrochanteric region of the proximal right femur which does not appear significantly changed. IMPRESSION: No fracture or dislocation is seen. Electronically signed by: Sherif Amanda MD (04/03/2019 8:57 PM) [facility] DICTATED AND SIGNED BY: SHERIF AMANDA MD DATE: 04/03/192056 CC: BAL CHAPA MD; GHISLAINE SHEEHAN MD ~ [place] [address] IMAGING REPORT Signed PATIENT: ENDY NIELSEN ACCOUNT: [id number] : 1950 LOCATION: ER AGE: 68 SEX: F EXAM STATUS: REG ER ORD. PHYSICIAN: GHISLAINE SHEEHAN MD REASON: Fall off bar stool tonight PROCEDURE: CT HEAD AND CERVICAL SPINE WO Exam: CT head and cervical spine INDICATION: Fall off barstool TECHNIQUE: Sequential axial images through the head and cervical spine were obtained without the administration of IV contrast. Comparisons: None FINDINGS: Head: No focal parenchymal lesion or hemorrhage is identified. There is no midline shift or sulcal effacement. No acute vascular territory infarction is identified. Hernandez-white distinction is preserved. The ventricular system is within normal limits without compression hydrocephalus. The basal cisterns are well maintained. Extra cranial soft tissue scalp contusion overlying the vertex. The visualized portions of the paranasal sinuses and mastoid air cells are well-pneumatized. No acute fractures. Cervical spine: Vertebral body heights and alignment are well-maintained. Fracture to the cervical spine is not identified. The level spondylotic change in cervical spine with degenerative disc disease greatest at C4-C5. Mild bilateral facet arthropathy is noted throughout cervical spine. Visualized paraspinal soft tissues are unremarkable. IMPRESSION: 1. Extracranial soft tissue scalp contusion overlying the vertex. No acute intracranial abnormality. 2. Negative CT C-spine for acute traumatic injury. Exposure: One or more of the following in the visualized dose reduction techniques were utilized for this examination: 1. Automated exposure control 2. Adjustment of the MA and/or KV according to patient size Use of iterative of reconstructive technique Electronically signed by: Erik Khan MD (04/03/2019 9:16 PM) [facility] DICTATED AND SIGNED BY: ERIK KHAN MD DATE: 04/03/192115 CC: BAL CHAPA MD; GHISLAINE SHEEHAN MD ~ [][address] [place] [id number] IMAGING REPORT Signed PATIENT: ENDY NIELSEN ACCOUNT: [id number] : 1950 LOCATION: ER AGE: 68 SEX: F EXAM STATUS: REG ER ORD. PHYSICIAN: GHISLAINE SHEEHAN MD REASON: Omni 350, 85ml IV.S in I , Q III, dyspnea, fall off bar stool PROCEDURE: CT ANGIO CHEST W ABD PEL W/ Exam: CT of chest, abdomen and pelvis INDICATION: Fall TECHNIQUE: Sequential axial images through the chest, abdomen and pelvis obtained following the administration of 85 mL of Omni 350 IV contrast. Sagittal and coronal reformatted images were reconstructed from the axial data and reviewed. 3-D reformatted images were reconstructed from the axial data and reviewed. Comparisons: None FINDINGS: Visualized portions of the thyroid are unremarkable. No enlarged mediastinal lymph nodes are identified. Heart size is normal. No pericardial effusion. Thoracic aorta has a normal course and caliber. Pulmonary artery is not enlarged. No pulmonary embolus identified within the main, lobar or segmental pulmonary arteries. Bronchial wall thickening at the lower lobes bilaterally. There is mosaic attenuation in the lung parenchyma, likely related to air trapping. 8 mm nodule in the right lower lobe series 4 image 66. No pleural effusion or thickening. Liver, spleen, pancreas and adrenals are unremarkable. Gallstone noted within the gallbladder. Gallbladder is otherwise unremarkable. Kidneys demonstrate symmetric enhancement. No perinephric inflammation or hydronephrosis. Several hypoattenuating cystic lesions are noted in the kidneys bilaterally which are too small characterize others representing simple cysts. No renal or ureteral calculi. Bladder is distended and appears thin-walled. Uterus is nonenlarged. Exophytic fibroid is noted arising off the uterine fundus measuring approximately 4.3 cm. Numerous diverticula are noted within the descending and sigmoid colon without evidence of acute diverticulitis. Appendix is normal. No free intra-abdominal air or fluid. No obstruction. Abdominal aorta has a normal course and caliber. Abdominal vasculature is patent. No enlarged intra-abdominal lymph nodes are identified. No suspicious osseous lesions or acute fractures are identified. Sternotomy wires are noted. IMPRESSION: 1. No pulmonary embolus identified within the main, lobar or segmental pulmonary arteries. 2. No acute traumatic sequela identified within the chest, abdomen or pelvis. 3. Cholelithiasis 4. Diverticulosis without evidence of acute diverticulitis. 5. 8 mm nodule in the right lower lobe, this is stable when compared to the study in 2018. Continued follow-up with a [address] is recommended. Exposure: One or more of the following in the visualized dose reduction techniques were utilized for this examination: 1. Automated exposure control 2. Adjustment of the MA and/or KV according to patient size 3. Use of iterative of reconstructive technique Electronically signed by: Erik Khan MD (04/03/2019 9:08 PM) [facility] DICTATED AND SIGNED BY: ERIK KHAN MD DATE: 04/03/192107 CC: BAL CHAPA MD; GHISLAINE SHEEHAN MD ~ Course & Med Decision Making Course & Med Decision Making Pertinent Labs and Imaging studies reviewed. (See chart for details) Patient admitted to Dr. Yanes for further observation and evaluation. Impression: 1. Syncope 2. Head, Chest and Lt. hip contusions 3. Alcohol Intoxication 155 4. Mild CHF -Diastolic Dysfunction BNP 324 5. Hypokalemia 3.0 6. Elevated D-dimer 1.35 7. Elevated Creat. 1.2 8. Urinary tract infection [] Dragon Disclaimer Dragon Disclaimer This electronic medical record was generated, in whole or in part, using a voice recognition dictation system. Departure Departure: Disposition: 01 HOME/RESIDENCE PRIOR TO ADM Condition: STABLE Referrals: BAL CHAPA MD (PCP) Ailyn Disclaimer This chart was dictated in whole or in part using Voice Recognition software in a busy, high-work load, and often noisy Emergency Department environment. It may contain unintended and wholly unrecognized errors or omissions. GHISLAINE SHEEHAN MD Apr 03, 2019 18:38
[2019-04-03] MEDS ORDERED: MORPHINE SULFATE 10 MG/ML SYRINGE. SQ ONE (18:45)
[2019-04-03] MEDS ORDERED: MVI, ADULT NO.4 WITH VIT K 10 ML, FOLIC ACID SYRINGE for ER 1 MG, THIAMINE INJ 100 MG i... IV ONE ×4 (18:45)
[2019-04-03 19:04] LABS: BASO # 0.1 x10^3/uL (0.0-0.2); BASO % 1 % (0-3); EOS # 0.2 x10^3/uL (0.0-0.7); EOS % 3 % (0-3); HEMATOCRIT 39.9 % (36.0-47.0); HEMOGLOBIN 13.2 g/dL (12.0-15.5); LYMPH # 2.5 x10^3/uL (1.0-4.8); LYMPH % 27 % (24-48); MEAN CORPUSCULAR HEMOGLOBIN 30 pg (25-35); MEAN CORPUSCULAR HGB CONC 33 g/dL (31-37); MEAN CORPUSCULAR VOLUME 90 fL (79-100); MONO # 0.6 x10^3/uL (0.0-1.1); MONO % 6 % (0-9); NEUT # 5.9 x10^3uL (1.8-7.7); NEUT % 63 % (31-73); PLATELET COUNT 228 x10^3/uL (140-400); RED BLOOD COUNT 4.45 x10^6/uL (3.50-5.40); RED CELL DISTRIBUTION WIDTH 14.1 % (11.5-14.5); WHITE BLOOD COUNT 9.3 x10^3/uL (4.0-11.0)
[2019-04-03] MEDS ORDERED: THIAMINE 200 MG/2 ML VIAL. IV ONE (19:20)
[2019-04-03] MEDS ORDERED: FOLIC ACID 5 MG/ML SYRINGE for ER IV ONE (19:21)
[2019-04-03] MEDS ORDERED: MVI, ADULT NO.4 WITH VIT K 10 ML VIAL IV ONE (19:21)
[2019-04-03 19:25] LABS: ALBUMIN 3.7 g/dL (3.4-5.0); CALCIUM 8.7 mg/dL (8.5-10.1); CREATININE 1.2 mg/dL (0.6-1.0); DIRECT BILIRUBIN 0.1 mg/dL (0.0-0.2); GFR 44.9; MAGNESIUM 2.2 mg/dL (1.8-2.4); TOTAL BILIRUBIN 0.5 mg/dL (0.2-1.0); TOTAL PROTEIN 7.5 g/dL (6.4-8.2)
[2019-04-03] MEDS ORDERED: ENOXAPARIN ** NOTE DOSE ** SYRINGE SQ ONE (19:30)
[2019-04-03] MEDS ORDERED: IV RINGERS SOLUTION,LACTATED 1,000 ML IV ONE (19:30)
[2019-04-03 19:39] LABS: BARBITURATES NEG (NEG); BENZODIAZEPINES NEG (NEG); CANNABINOIDS NEG (NEG); COCAINE NEG (NEG); METHADONE NEG (NEG); OPIATES NEG (NEG); PHENCYCLIDINE NEG (NEG)
[2019-04-03 19:41] LABS: AMPHETAMINE/METHAMPHETAMINE NEG (NEG)
[2019-04-03 19:42] LABS: BILIRUBIN,URINE NEG (NEG); CLARITY,URINE CLEAR; COLOR,URINE YELLOW; GLUCOSE,URINE NEG (NEG); UROBILINOGEN,URINE 0.2 mg/dL (0.2 mg/dL)
[2019-04-03 19:43] LABS: BACTERIA,URINE 0 /HPF (0-FEW); NITRITE,URINE NEG (NEG); RBC,URINE OCC /HPF (0-2); SQUAMOUS EPITHELIAL CELL,UR OCC /LPF
[2019-04-03] MEDS ORDERED: MAGNESIUM HYDROXIDE 2,400 MG/30 ML ORAL.SUSP. PO ONE (19:45)
[2019-04-03] MEDS ORDERED: POTASSIUM CHLORIDE 20 MEQ TABLET.ER. PO ONE (19:45)
[2019-04-03] MEDS ORDERED: IOHEXOL 300 MG/ML 75 ML VIAL. IV ONE (19:45)
[2019-04-03] MEDS ORDERED: IOHEXOL 350 MG/ML 100 ML VIAL. IV ONE (20:00)
[2019-04-03] MEDS ORDERED: IOHEXOL 350 MG/ML 100 ML VIAL. ONE (20:01)
[2019-04-03] MEDS ORDERED: CONTRAST GIVEN MC PRN (20:30)
--- NOTE | 2019-04-03 21:00 | RAD ---
AP pelvis to include AP and lateral radiographs left hip 23/01/2019 CLINICAL HISTORY: Fall with left hip pain. An AP digital radiograph of the pelvis to include both hips was obtained. AP and lateral digital radiographs of the left hip were obtained. Comparison is made to an acute abdominal series dated 08/29/2017. Tubal ligation clips overlie the pelvis. Calcifications are seen within the pelvis consistent with phleboliths. No pelvic bone fracture is seen. Both hips are intact. Specifically no fracture or dislocation left hip is seen. Mild degenerative changes are seen involving both SI joints and both hips. A sclerotic lesion is seen involving the intertrochanteric region of the proximal right femur which does not appear significantly changed. IMPRESSION: No fracture or dislocation is seen. Electronically signed by: Sherif Amanda MD (04/03/2019 8:57 PM) [facility]
[2019-04-03] MEDS ORDERED: cefTRIAXone SODIUM 1 GM VIAL ONE (21:05)
[2019-04-03] MEDS ORDERED: IV NORMAL SALINE 50ML 50 ML ONE (21:05)
--- NOTE | 2019-04-03 21:11 | RAD ---
Exam: CT of chest, abdomen and pelvis INDICATION: Fall TECHNIQUE: Sequential axial images through the chest, abdomen and pelvis obtained following the administration of 85 mL of Omni 350 IV contrast. Sagittal and coronal reformatted images were reconstructed from the axial data and reviewed. 3-D reformatted images were reconstructed from the axial data and reviewed. Comparisons: None FINDINGS: Visualized portions of the thyroid are unremarkable. No enlarged mediastinal lymph nodes are identified. Heart size is normal. No pericardial effusion. Thoracic aorta has a normal course and caliber. Pulmonary artery is not enlarged. No pulmonary embolus identified within the main, lobar or segmental pulmonary arteries. Bronchial wall thickening at the lower lobes bilaterally. There is mosaic attenuation in the lung parenchyma, likely related to air trapping. 8 mm nodule in the right lower lobe series 4 image 66. No pleural effusion or thickening. Liver, spleen, pancreas and adrenals are unremarkable. Gallstone noted within the gallbladder. Gallbladder is otherwise unremarkable. Kidneys demonstrate symmetric enhancement. No perinephric inflammation or hydronephrosis. Several hypoattenuating cystic lesions are noted in the kidneys bilaterally which are too small characterize others representing simple cysts. No renal or ureteral calculi. Bladder is distended and appears thin-walled. Uterus is nonenlarged. Exophytic fibroid is noted arising off the uterine fundus measuring approximately 4.3 cm. Numerous diverticula are noted within the descending and sigmoid colon without evidence of acute diverticulitis. Appendix is normal. No free intra-abdominal air or fluid. No obstruction. Abdominal aorta has a normal course and caliber. Abdominal vasculature is patent. No enlarged intra-abdominal lymph nodes are identified. No suspicious osseous lesions or acute fractures are identified. Sternotomy wires are noted. IMPRESSION: 1. No pulmonary embolus identified within the main, lobar or segmental pulmonary arteries. 2. No acute traumatic sequela identified within the chest, abdomen or pelvis. 3. Cholelithiasis 4. Diverticulosis without evidence of acute diverticulitis. 5. 8 mm nodule in the right lower lobe, this is stable when compared to the study in 2018. Continued follow-up with a [address] is recommended. Exposure: One or more of the following in the visualized dose reduction techniques were utilized for this examination: 1. Automated exposure control 2. Adjustment of the MA and/or KV according to patient size 3. Use of iterative of reconstructive technique Electronically signed by: Erik Russell MD (04/03/2019 9:08 PM) [facility]
--- NOTE | 2019-04-03 21:19 | RAD ---
Exam: CT head and cervical spine INDICATION: Fall off barstool TECHNIQUE: Sequential axial images through the head and cervical spine were obtained without the administration of IV contrast. Comparisons: None FINDINGS: Head: No focal parenchymal lesion or hemorrhage is identified. There is no midline shift or sulcal effacement. No acute vascular territory infarction is identified. Hernandez-white distinction is preserved. The ventricular system is within normal limits without compression hydrocephalus. The basal cisterns are well maintained. Extra cranial soft tissue scalp contusion overlying the vertex. The visualized portions of the paranasal sinuses and mastoid air cells are well-pneumatized. No acute fractures. Cervical spine: Vertebral body heights and alignment are well-maintained. Fracture to the cervical spine is not identified. The level spondylotic change in cervical spine with degenerative disc disease greatest at C4-C5. Mild bilateral facet arthropathy is noted throughout cervical spine. Visualized paraspinal soft tissues are unremarkable. IMPRESSION: 1. Extracranial soft tissue scalp contusion overlying the vertex. No acute intracranial abnormality. 2. Negative CT C-spine for acute traumatic injury. Exposure: One or more of the following in the visualized dose reduction techniques were utilized for this examination: 1. Automated exposure control 2. Adjustment of the MA and/or KV according to patient size Use of iterative of reconstructive technique Electronically signed by: Erik Russell MD (04/03/2019 9:16 PM) [facility]
[2019-04-03] MEDS ORDERED: ONDANSETRON PF 4 MG/2 ML VIAL. IV PRN (21:45)
[2019-04-03] MEDS ORDERED: ACETAMINOPHEN 325 MG TABLET PO PRN (21:45)
--- NOTE | 2019-04-03 22:20 | RAD ---
AP portable chest radiograph 04/03/2019 Clinical History: Chest pain. Fall. An AP erect portable digital radiograph of the chest was obtained. Comparison study is dated 11/18/2017. The patient is post CABG procedure. Elevation of the right hemidiaphragm is again noted. The cardiac silhouette is mildly enlarged. The thoracic aorta is tortuous. Atherosclerotic calcification of the thoracic aorta is seen. Linear bands of subsegmental atelectasis are seen involving both lower lobes. No area of consolidation is seen. No pneumothorax or pleural effusion is noted. Degenerative changes are seen involving the thoracic spine and both shoulders. The osseous structures are grossly intact. Impression: Areas of subsegmental atelectasis are seen involving both lower lobes. Electronically signed by: Sherif Amanda MD (04/03/2019 10:17 PM) [facility]
[2019-04-03 22:45] VITALS: BP 105/70
--- NOTE | 2019-04-03 22:56 | NUR ---
The patient, ENDY NIELSEN, 68 y/o, F admitted by BAL CHAPA MD, was given written information regarding hospital policies, unit procedures and contact persons. Valuables were checked and logged. Call light at bedside. Pt states, "I have problems paying for my medications so I don't take them like I should." Will continue to monitor.
[2019-04-03] MEDS ORDERED: LEVO125T5 PO (23:04)
--- NOTE | 2019-04-04 03:38 | NUR ---
Pt said that she cannot afford her medications and cannot take them as prescribed all the time. Case management is consulted.
[2019-04-04] MEDS ORDERED: IPRATRPIUM/ALBUTEROL 0.5/2.5MG 3 ML NEBU. ONE (04:58)
--- NOTE | 2019-04-04 05:55 | NUR ---
Routine Cardio consult paged at this time.
[2019-04-04 06:30] LABS: BASO % 0 % (0-3); EOS # 0.2 x10^3/uL (0.0-0.7); EOS % 3 % (0-3); HEMATOCRIT 36.3 % (36.0-47.0); HEMOGLOBIN 11.8 g/dL (12.0-15.5); LYMPH # 2.4 x10^3/uL (1.0-4.8); LYMPH % 31 % (24-48); MEAN CORPUSCULAR HEMOGLOBIN 29 pg (25-35); MEAN CORPUSCULAR HGB CONC 33 g/dL (31-37); MEAN CORPUSCULAR VOLUME 89 fL (79-100); MONO # 0.5 x10^3/uL (0.0-1.1); MONO % 6 % (0-9); NEUT # 4.5 x10^3uL (1.8-7.7); NEUT % 60 % (31-73); PLATELET COUNT 207 x10^3/uL (140-400); RED BLOOD COUNT 4.06 x10^6/uL (3.50-5.40); RED CELL DISTRIBUTION WIDTH 14.7 % (11.5-14.5); WHITE BLOOD COUNT 7.6 x10^3/uL (4.0-11.0)
[2019-04-04 06:37] LABS: CALCIUM 8.3 mg/dL (8.5-10.1); GFR 55.5; POTASSIUM 3.9 mmol/L (3.5-5.1)
[2019-04-04] MEDS ORDERED: IPRATRPIUM/ALBUTEROL 0.5/2.5MG 3 ML NEBU. NEB SCH (08:00)
[2019-04-04] MEDS: POTASSIUM CHLORIDE 20 MEQ TABLET.ER. PO SCH (08:54)
[2019-04-04] MEDS ORDERED: THIAMINE INJ 100 MG in IV NORMAL SALINE 50ML 50 ML IV ONE (09:00)
[2019-04-04] MEDS ORDERED: FLU VAX QS 2019-20 (36MOS+)/PF 0.5 ML SYRINGE. VAX IM ONE (09:00)
--- NOTE | 2019-04-04 09:37 | CONS ---
DATE OF CONSULTATION: 04/04/2019 REASON FOR CONSULTATION: Syncope. HISTORY OF PRESENT ILLNESS: The patient is a pleasant 68-year-old woman with the past medical history as noted below, who presents to the hospital in the setting of syncope related to alcohol intoxication. Cardiology was asked to evaluate her for further evaluation given her history of atrial fibrillation and coronary artery disease. In speaking with the patient, she denies any specific cardiac limitations such as chest pain, dyspnea, orthopnea or PND. She has not had any exertional issues since her stent was placed in 2018. Of note, her history is complicated and she has been mostly followed at [facility]. Her last visit there was apparently one year ago where she was transferred to [facility] after initially arriving at [facility] and ultimately having a positive stress test in the setting of chest pain symptoms. She thinks that she might have had a stent placed at that time where they went through the left wrist. She does not recall the pertinent history regarding these issues. Currently, the patient appears to be resting comfortably and denies any other problems. PAST MEDICAL HISTORY: 1. Prior history of thoracic mass, status post resection at [facility]. 2. History of anxiety. 3. History of hyperparathyroidism. 4. History of chronic anemia. 5. History of atrial fibrillation related to postoperative state previously and was on Eliquis and metoprolol. 6. Hypertension. SOCIAL HISTORY: The patient denies any tobacco use or illicit drug use. She does consume alcohol. ALLERGIES: No known drug allergies. CURRENT CARDIOVASCULAR MEDICATIONS: Apixaban 10 mg daily. REVIEW OF SYSTEMS: Negative unless otherwise mentioned above in HPI. PHYSICAL EXAMINATION: VITAL SIGNS: Afebrile, 64, 20, 105/70, 95% on room air. GENERAL: She is alert and oriented, in no acute distress. HEAD AND NECK: Unremarkable. CARDIAC: Regular rate and rhythm without murmurs, rubs or gallops. LUNGS: Clear to auscultation. ABDOMEN: Soft, nontender, nondistended. EXTREMITIES: No clubbing, cyanosis or edema. NEUROLOGIC: No focal deficits. MUSCULOSKELETAL: No trauma. Radial pulses are 2+ and dorsalis pedis pulses are 1+. DIAGNOSTIC STUDIES: Hemoglobin is 11.8, platelets of 207. Creatinine 1.0 with negative cardiac enzymes. BNP is minimally elevated at 324. Tox screen is positive for alcohol. Chest x-ray is grossly unremarkable. Previous nuclear medicine scan in 09/2017 abnormal with reversible anterior perfusion defect. Cardiac catheterization results from [facility] are not currently available for review. EKG is also not available for review, but telemetry reveals no obvious pathology. IMPRESSION: 1. Syncope in the setting of alcohol intoxication. 2. Presumed history of coronary artery disease, status post PCI in 09/2017 per the patient's recollection. 3. Currently normotensive. 4. History of mediastinal mass, status post resection. RECOMMENDATIONS: From a purely cardiovascular standpoint, no further testing is necessary at this time. She has an elevated D-dimer and is currently undergoing evaluation further, but she has had a chronic history of elevated D-dimers. Thank you for this consultation. JULIAN MAYES MD DR: OSMAR/devin JOB#: [id number] / [id number]
--- NOTE | 2019-04-04 10:33 | RAD ---
Bilateral lower extremity venous Doppler ultrasound History: Edema, elevated d-dimer. History of DVT. Comparison: None. Procedure: Color flow Doppler, Doppler spectral analysis, and 2D images are obtained with and without compression in the area of the common femoral vein, superficial femoral vein - femoral vein junction, main femoral vein (superficial femoral vein) and popliteal vein. Veins of the proximal calf are also imaged. Findings: There is normal color flow, augmentation, and compressibility of all visualized vein segments. No evidence of deep venous thrombus is present. IMPRESSION: No evidence of right or left lower extremity deep venous thrombosis. Electronically signed by: Orville Pierre MD (04/04/2019 10:30 AM) [facility]
[2019-04-04] MEDS: APIXABAN 5 MG TABLET. PO SCH (10:51)
[2019-04-04 11:40] VITALS: BP 90/58
--- NOTE | 2019-04-04 11:58 | HP ---
ADMIT DATE: 04/03/2019 HISTORY OF PRESENT ILLNESS: A 68-year-old female. Weight 83. Came in through the Emergency Room, apparently fell off a bar stool, complaints of syncope ____ and fell off a bar stool and fell on the left side of her chest and the left hip. She was noted to have problems in the past of lightheadedness and syncope and has had [facility] as well. She was drinking heavily and the patient was admitted for further evaluation of her syncope and contusion to the chest and make further evaluation on her. 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 She had a stent of the coronary artery for coronary artery disease, chronic atrial fib, anemia, anxiety, DVT, hypothyroidism. 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 Cardiac catheterization. 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 Pneumococcal vaccination is up-to-date. ALLERGIES: No known drug allergies. Brother of lung cancer. FAMILY HISTORY: Father had a heart disease. Grandparents, emphysema along with her mother, also had heart failure along with her grandparents having the heart failure. SOCIAL HISTORY: The patient has the [id number] history of smoking, apparently restarted again, of her smoking history and apparently she does drink alcohol, but not very often and became intoxicated there. The patient apparently is a full code. Has about the 40-qjmu-sxlp history of smoking. REVIEW OF SYSTEMS: The patient has somewhat of a headache and she did fall against something when she fell. The patient apparently did lose a little bit of consciousness. CT did show a scalp contusion there. The patient otherwise denied abdominal pain and chest pain. Denied any melena, hematochezia, or hematemesis. Neurologically, she is noted somewhat still recovering from her alcohol abuse. PHYSICAL EXAMINATION: GENERAL: The patient on exam is a pleasant white female, looking a little lethargic, but oriented and able to answer questions. VITAL SIGNS: Blood pressure 120/64, respiration 18, pulse 68, and afebrile. The patient is alert and oriented. LUNGS: Diminished. CARDIOVASCULAR: Regular sinus rhythm, S1 and S2. ABDOMEN: Soft and nontender. The patient has some bumps and bruises and back of the head slightly had a contusion. NEUROLOGIC: The patient was alert and oriented, although somewhat depressed affect. EXTREMITIES: No clubbing, cyanosis, or edema. NEUROLOGIC: Stable as noted above. LABORATORY DATA: The patient's labs demonstrated hemoglobin 11.8, hematocrit 36, and platelets were normal. Chemistries, 143, 3.9, BUN and creatinine 17 and 1, blood sugar 106, ____ 227. BNP of 324. 1.35 on the D-dimer course. Ethyl alcohol 155. 5-10 whites in her urine. Head CT basically unremarkable except for the scalp swelling. No fractures noted. Chest x-ray, areas of atelectasis with lower lobes, but nothing there. The patient had Dopplers of the lower extremities. IMPRESSION: Mild concussion secondary to mechanical fall, alcohol abuse, alcohol intoxication, history of chronic atrial fib, history of thymus benign tumor, leukorrhea, hyperglycemia, and anemia of unknown etiology. PLAN: As above. Continue to monitor the patient accordingly to make further adjustments on her medications, give her some thiamine IV, and make further evaluation as indicated. BAL CHAPA MD DR: ANJALI/devin JOB#: [id number] / [id number]
[2019-04-04] MEDS: LEVOTHYROXINE 150 MCG TABLET PO SCH (12:41)
[2019-04-04 15:58] VITALS: BP 117/76
--- NOTE | 2019-04-04 19:06 | EKG ---
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
[2019-04-04 19:37] VITALS: BP 138/83
[2019-04-04 22:31] VITALS: BP 160/92
[2019-04-05 05:24] VITALS: BP 136/89
[2019-04-05] MEDS: LEVOTHYROXINE 150 MCG TABLET PO SCH (05:25)
[2019-04-05] MEDS ORDERED: LACTOBACILLUS RHAMNOSUS GG 1 CAPSULE. PO SCH (09:00)
[2019-04-05] MEDS: POTASSIUM CHLORIDE 20 MEQ TABLET.ER. PO SCH (10:05)
[2019-04-05] MEDS: APIXABAN 5 MG TABLET. PO SCH (10:05)
[2019-04-05] MEDS ORDERED: LEVO150T PO (11:10)
[2019-04-05] MEDS ORDERED: APIX5TAB3 PO (11:10)
[2019-04-05 11:23] VITALS: BP 128/84
--- NOTE | 2019-04-05 12:13 | NUR ---
Pt discharged home for self care. Pt iv removed, pressure dressing applied. Pt given written and verbal discharge instructions. This nurse received verbal understanding from pt. Pt left unit in stable condition accompanied by friend.
--- NOTE | 2019-04-05 20:01 | DS ---
DATE OF DISCHARGE: 04/05/2019 HOSPITAL COURSE: A 68-year-old female came in initially fallen off a bar stool, inebriated, hit her head, had a mild concussion. The patient was feeling fairly weak and tired and as a result of this, was monitored carefully as well as for alcohol detox and the like. The patient's blood pressure went as high as 160/92, respiratory rate 20, pulse 74, afebrile that came down. Her labs did show a slight decrease in her hemoglobin 11.8 and 36. Chemistries were basically stable except for low potassium of 3 which was corrected. Her TSH was roughly 49. Her creatine kinase was elevated because of the fall. The patient's BUN and creatinine were 17 and 1. Blood sugars were elevated. Blood sodium came down. Her d-dimer of course was elevated, but a scan of her chest was unremarkable there. The patient did have cholelithiasis along with no pulmonary emboli. The patient made good progress during the rest of her hospitalization. She was strong enough to go home. Encouraged to stop drinking. PHYSICAL EXAMINATION: VITAL SIGNS: Blood pressure 128/64, respiratory rate 20, pulse 75 and afebrile. HEENT: Head was atraumatic except for some swelling to the back of the head. Her alcohol level was 155 when she first came. In any case, the patient made excellent progress during the rest of her hospitalization. There were no complications noted. IMPRESSION: Concussion secondary to mechanical fall off a chair, alcohol abuse, anemia of unknown etiology, hypothyroidism, hematuria, elevated d-dimer, venous Doppler negative. Chest x-ray showing some atelectasis, cholelithiasis, obesity, contusion to the scalp with swelling. PLAN: The patient will be on a regular diet, decreased activity. No drinking. No driving, have her follow up to the office here in 7-10 days or sooner as needed. See MRAD. BAL CHAPA MD DR: ANJALI/devin JOB#: [id number] / [id number]
[2019-04-06] MEDS ORDERED: APIXABAN 5 MG TABLET. PO SCH (09:00)
== END 2019-04-05 12:05 | disposition home or self-care (01) | DRG 897 ==
LOC: ER 18:31 → 1 SOUTH 20:30
PROVIDERS: ADMIT Family Medicine; ATTEND Family Medicine
DX: F10.129 Alcohol abuse with intoxication, unspecified (principal); N39.0 Urinary tract infection, site not specified; I48.20 Chronic atrial fibrillation, unspecified; I50.30 Unspecified diastolic (congestive) heart failure; K80.20 Calculus of gallbladder without cholecystitis without obstruction; E87.6 Hypokalemia; S00.03XA Contusion of scalp, initial encounter; S06.0X0A Concussion without loss of consciousness, initial encounter; F41.9 Anxiety disorder, unspecified; M19.90 Unspecified osteoarthritis, unspecified site; F32.9 Major depressive disorder, single episode, unspecified; F17.200 Nicotine dependence, unspecified, uncomplicated; I11.0 Hypertensive heart disease with heart failure; I25.10 Atherosclerotic heart disease of native coronary artery without angina pectoris; E03.9 Hypothyroidism, unspecified; W18.39XA Other fall on same level, initial encounter; D64.9 Anemia, unspecified; S70.02XA Contusion of left hip, initial encounter; Z86.718 Personal history of other venous thrombosis and embolism; Z79.01 Long term (current) use of anticoagulants; Z82.5 Family history of asthma and other chronic lower respiratory diseases; Z82.49 Family history of ischemic heart disease and other diseases of the circulatory system; Y93.89 Activity, other specified; Y92.89 Other specified places as the place of occurrence of the external cause; Y99.8 Other external cause status; Z86.711 Personal history of pulmonary embolism; Z98.61 Coronary angioplasty status
CPT/HCPCS: 36415; 70450; 71045; 71275; 72125; 73502; 74177; 80048; 80076; 80307; 81001; 82550; 83690; 83735; 83880; 84443; 84484; 85025; 85379; 85610; 85730; 87086; 90471; 90686; 93005; 93970; 94640; 96365; 96367; 96372; G0480; J0696; J1650; J2270; J7120; J7620; Q9967; 99285-25

== ENCOUNTER 2019-04-13 17:08 | Emergency (ER) | payer MEDICARE ==
[~2019-04-13] VITALS: Ht 160 cm; Wt 52.0 kg
[~2019-04-13 17:08] MED LIST changes: +LEVO125T5 PO; +LEVO150T PO
[2019-04-13] MEDS ORDERED: cloNIDine HCL 0.1 MG TABLET ONE (17:18)
[2019-04-13] MEDS ORDERED: IV NORMAL SALINE 1,000ML 1,000 ML IV SCH (17:39)
--- NOTE | 2019-04-13 17:48 | PHYS DOC ---
Past History Past Medical History: A-Fib, Anemia, Anxiety, COPD, DVT, Hypertension, Hypothyroid, Pneumonia, Other (JACOBO CASTRO MD) Past Surgical History: Other Additional Past Surgical Histo: thyroid tumor, cardiac stent (JACOBO CASTRO MD) Smoking: Cigarettes Alcohol Use: Rarely Drug Use: None (JACOBO CASTRO MD) Adult General Chief Complaint Chief Complaint: RIB PAIN HPI HPI Patient is a 68-year-old female who presents to the emergency department for evaluation. She states that she has had a cough, productive of some whitish/clear sputum, for the past week or 2. She reports some left-sided rib pain, worse with coughing, but has not had any fevers. She reports some mild shortness of breath. She does take breathing treatments twice a day, but has not taken any breathing treatments today. She also reports some generalized abdominal discomfort in her left side. There are no alleviating or exacerbating factors to her symptoms otherwise. (JACOBO CASTRO MD) Review of Systems Review of Systems Constitutional: Denies fever or chills [] Eyes: Denies change in visual acuity, redness, or eye pain [] HENT: Reports nasal congestion, denies otalgia or sore throat [] Respiratory: Reports cough and shortness of breath [] Cardiovascular: No additional information not addressed in HPI [] GI: Denies nausea, vomiting, bloody stools or diarrhea [] : Denies dysuria or hematuria [] Musculoskeletal: Denies back pain or joint pain [] Integument: Denies rash or skin lesions [] Neurologic: Denies headache, focal weakness or sensory changes [] Endocrine: Denies polyuria or polydipsia [] All other systems were reviewed and found to be within normal limits, except as documented in this note. (JACOBO CASTRO MD) Current Medications Current Medications Current Medications Medications (Trade) Dose Ordered Sig/Trevor Start Time Stop Time Status Last Admin Dose Admin Albuterol/ Ipratropium (Duoneb) 3 ml 1X ONCE 04/13/19 17:45 04/13/19 17:46 UNV Clonidine HCl (Catapres) 0.1 mg STK-MED ONCE 04/13/19 17:18 04/13/19 17:18 DC Methylprednisolone Sodium Succinate (SOLU-Medrol 125MG VIAL) 125 mg 1X ONCE 04/13/19 17:45 04/13/19 17:46 UNV Sodium Chloride 1,000 ml @ 100 mls/hr Q10H 04/13/19 17:39 04/14/19 03:38 UNV (JACOBO CASTRO MD) Allergies Allergies Allergies Coded Allergies Type Severity Reaction Last Updated Verified No Known Drug Allergies 11/18/17 No (JACOBO CASTRO MD) Physical Exam Physical Exam PHYSICAL EXAM: CONSTITUTIONAL: Well developed, well nourished HEAD: normocephalic, atraumatic EENT: PERRL, EOMI. Conjunctivae normal color, sclerae non-icteric; moist mucous membranes. NECK: Supple, non-tender; no meningismus. LUNGS: There is a paroxysmal, wheezy cough present. There are mild scattered wheezes and rhonchi, breathing is mildly labored. Normal air movement. HEART: Regular rate and rhythm, no murmur CHEST: No deformity; non-tender ABDOMEN: The abdomen is soft, there is tenderness to palpation in left mid and lower abdomen, without rebound or guarding, the remainder the abdomen is soft and non-tender, no masses or bruits. EXTREM: Normal ROM; no deformity, no calf tenderness. Normal pulses palpable in all extremities. There is no pedal edema. SKIN: No rash; no diaphoresis NEURO: Alert; normal speech and cognition; CN's grossly intact; strength grossly intact without focal deficit. BACK: No CVA TTP.There is no bony tenderness to palpation of the thoracic or lumbar spine. (JACOBO CASTRO MD) Current Patient Data Vital Signs Vital Signs Date Time Temp Pulse Resp B/P (MAP) Pulse Ox O2 Delivery O2 Flow Rate FiO2 04/13/19 17:28 98.6 95 16 97 Room Air (JACOBO CASTRO MD) Vital Signs * 98.6 degrees F (97.6-99.5) Patient Temperature * 98.6 degrees F (97.5-99.5) Temperature Source * Oral Blood Pressure Systolic * 130 mm Hg (100-140) Blood Pressure Diastolic * 45 mm Hg (60-100) L Blood Pressure Mean * 73 mm Hg Blood Pressure Location * Left Arm Blood Pressure Source * Automatic Cuff Pulse Rate * 95 beats per minute (60-90) H Pulse Assessment Method * Monitor Respiratory Rate * 16 breaths per minute (12-24) Oxygen Delivery Method * Room Air Bedside Pulse Oximetry * 97 % Treatment Prior to Arrival (MARCELA AYERS MD) EKG EKG [] (JACOBO CASTRO MD) Radiology/Procedures Radiology/Procedures [] (JACOBO CASTRO MD) Radiology/Procedures IMPRESSION: 1. Poor inspiration. 2. Elevated right diaphragm. 3. Bilateral linear scarring. 4. No new infiltrates noted. Electronically signed by: Reynold Anderson MD (04/13/2019 6:25 PM) [facility] DICTATED AND SIGNED BY: REYNOLD ANDERSON MD DATE: 04/13/19 1825 CC: BAL CHAPA MD; JACOBO CASTRO MD; MARCELA AYERS MD ~ Impressions: Impression: 1. No acute abnormality seen throughout the abdomen and pelvis and there has been no significant interval change from 04/03/2019 2. Unchanged 8 mm right lower lobe pulmonary nodule. As discussed previously, follow-up in 1 year is recommended. 3. Left breast nodule at 1.7 cm is no different from the prior. If not recently performed, mammography is recommended for better characterization. 4. Prominent gallstone now seen within the mid gallbladder body and previously within the fundus. No CT evidence for acute cholecystitis. If there is pain at this location, dedicated right upper quadrant sonography could be performed. 5. 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 6. Additional chronic findings as discussed above. Electronically signed by: KALYAN ANDRES MD (04/13/2019 7:15 PM) [facility] (MARCELA AYERS MD) Course & Med Decision Making Course & Med Decision Making Pertinent Labs and Imaging studies reviewed. (See chart for details) []6:00 PM: Patient care will be turned over to Dr. Ayers at shift change. Report given, diagnostics and disposition pending. (JACOBO CASTRO MD) Course & Med Decision Making Signout received from Dr. Castro patient initially came in complaining of cough and rib pain with coughing but then had left lower quadrant tenderness on Dr. Castro's evaluation. Asked me to follow-up on lab work imaging in reassessment. I evaluated the patient again does have a reactive cough noted no overt wheezing there is no right upper quadrant tenderness labs are actually fairly reassuring overall chest x-ray abnormal but stable from previous no definite acute pneumonia CT abdomen and pelvis noted. I advised the patient to follow-up for the incidental findings with her primary doctor in the next week but no acute pathology was identified I suspect patient has bronchitis likely related to underlying COPD and was prescribed doxycycline and prednisone for t his continue breathing treatments at home return precautions discussed and she voiced understanding. Noted the nursing note apparently the urethra was somewhat excoriated but no overt bleeding was identified patient denied any rectal bleeding (MARCELA AYERS MD) Dragon Disclaimer Dragon Disclaimer This electronic medical record was generated, in whole or in part, using a voice recognition dictation system. (JACOBO CASTRO MD) Departure Departure: Impression: Primary Impression: Bronchitis Disposition: 01 HOME, SELF-CARE Condition: STABLE Referrals: BAL CHAPA MD (PCP) Scripts Prednisone (PREDNISONE) 50 Mg Tablet 1 TAB PO DAILY for bronchitis, #5 TAB Prov: MARCELA AYERS MD 04/13/19 Doxycycline Hyclate (DOXYCYCLINE HYCLATE) 100 Mg Tablet 1 TAB PO BID for bronchitis, #14 TAB Prov: MARCELA AYERS MD 04/13/19 JACOBO CASTRO MD Apr 13, 2019 17:48 MARCELA AYERS MD Apr 13, 2019 20:02
[2019-04-13] MEDS ORDERED: IPRATRPIUM/ALBUTEROL 0.5/2.5MG 3 ML NEBU. NEB ONE (18:00)
[2019-04-13] MEDS ORDERED: methylPREDNISolone SOD SUCC PF 125 MG/2 ML VIAL. IV ONE (18:00)
[2019-04-13] MEDS ORDERED: BENZONATATE 100 MG CAPSULE. PO ONE (18:00)
[2019-04-13 18:10] LABS: BASO # 0.1 x10^3/uL (0.0-0.2); BASO % 1 % (0-3); EOS # 0.2 x10^3/uL (0.0-0.7); EOS % 3 % (0-3); HEMATOCRIT 43.9 % (36.0-47.0); HEMOGLOBIN 14.2 g/dL (12.0-15.5); LYMPH % 20 % (24-48); MEAN CORPUSCULAR HEMOGLOBIN 29 pg (25-35); MEAN CORPUSCULAR HGB CONC 32 g/dL (31-37); MEAN CORPUSCULAR VOLUME 89 fL (79-100); MONO # 0.5 x10^3/uL (0.0-1.1); MONO % 9 % (0-9); NEUT # 3.5 x10^3uL (1.8-7.7); NEUT % 67 % (31-73); PLATELET COUNT 214 x10^3/uL (140-400); RED BLOOD COUNT 4.91 x10^6/uL (3.50-5.40); RED CELL DISTRIBUTION WIDTH 13.7 % (11.5-14.5); WHITE BLOOD COUNT 5.3 x10^3/uL (4.0-11.0)
[2019-04-13] MEDS ORDERED: IOHEXOL 300 MG/ML 75 ML VIAL. IV ONE (18:15)
--- NOTE | 2019-04-13 18:28 | RAD ---
PA and lateral chest. HISTORY: Cough, short of breath, history of smoking PA and lateral views were taken of the chest. Patient's taken a poor inspiration. There is elevation the right diaphragm. Patient previous bypass surgery. There is linear scarring bilaterally. There are no confluent areas of infiltrate. Pattern is similar to the recent prior chest x-ray. IMPRESSION: 1. Poor inspiration. 2. Elevated right diaphragm. 3. Bilateral linear scarring. 4. No new infiltrates noted. Electronically signed by: Reynold Anderson MD (04/13/2019 6:25 PM) [id number]
[2019-04-13 18:30] LABS: ALBUMIN 3.6 g/dL (3.4-5.0); ALBUMIN/GLOBULIN RATIO 0.9 (1.0-1.7); CREATININE 0.8 mg/dL (0.6-1.0); GFR 71.8; TOTAL BILIRUBIN 0.8 mg/dL (0.2-1.0); TOTAL PROTEIN 7.7 g/dL (6.4-8.2)
[2019-04-13 18:36] VITALS: BP 136/70
--- NOTE | 2019-04-13 19:18 | RAD ---
Study: CT abdomen/pelvis with intravenous contrast Indication: Left-sided abdominal pain. Comparison: 04/03/2019 Technique: Helical CT imaging performed of the abdomen and pelvis after the intravenous administration of 75 cc Omnipaque 300 contrast. Sagittal and coronal reformats were obtained. One or more of the following individualized dose reduction techniques were utilized for this examination: 1. Automated exposure control 2. Adjustment of the mA and/or kV according to patient size 3. Use of iterative reconstruction technique. Findings: Only the far inferior margin of the previously described right middle lobe nodule is included in the [id number], image 1 series 2. Unchanged size of an 8 mm right lower lobe nodule, image 8 series 2. Very small left pleural effusion. Median sternotomy wires partially visualized partially visualized subcarinal lymph node measuring up to 1.5 cm that is unchanged. Right hilar granulomas. Left breast nodule on image 8 series 2 is unchanged in size at 1.7 cm. No newly seen abnormality of the liver. Prominent gallstone with previous is seen in the fundal region and now is located at the mid body. No CT evidence for acute cholecystitis. Unremarkable pancreas. Splenic granulomas. No adrenal gland mass. Scattered renal cystic foci are unchanged. No hydroureteronephrosis. Partially collapsed urinary bladder. Unchanged size of a partially calcified and exophytic/pedunculated uterine fibroid off the fundus. Tubal ligation clips. Colonic diverticulosis without diverticulitis. Mildly constipated state. Normal appendix. Nonobstructed small bowel. Incomplete evaluation of the stomach due to underdistention. No newly seen lymphadenopathy. No free fluid or air. Lucent lesion at the right intertrochanteric femur with geographic margination and dense mineralization along the periphery is unchanged. Redemonstrated grade 1 anterolisthesis of L4 on L5 and scattered degenerative changes throughout the spinal column. Impression: 1. No acute abnormality seen throughout the abdomen and pelvis and there has been no significant interval change from 04/03/2019 2. Unchanged 8 mm right lower lobe pulmonary nodule. As discussed previously, follow-up in 1 year is recommended. 3. Left breast nodule at 1.7 cm is no different from the prior. If not recently performed, mammography is recommended for better characterization. 4. Prominent gallstone now seen within the mid gallbladder body and previously within the fundus. No CT evidence for acute cholecystitis. If there is pain at this location, dedicated right upper quadrant sonography could be performed. 5. 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 6. Additional chronic findings as discussed above. Electronically signed by: KALYAN ANDRES MD (04/13/2019 7:15 PM) [facility]
[2019-04-13 19:21] LABS: BACTERIA,URINE 0 /HPF (0-FEW); BILIRUBIN,URINE NEG (NEG); CLARITY,URINE CLEAR; COLOR,URINE YELLOW; GLUCOSE,URINE NEG (NEG); NITRITE,URINE NEG (NEG); RBC,URINE OCC /HPF (0-2); SQUAMOUS EPITHELIAL CELL,UR OCC /LPF; UROBILINOGEN,URINE 0.2 mg/dL (0.2 mg/dL); WBC,URINE OCC /HPF (0-4)
[2019-04-13 19:29] LABS: INFLUENZA A PATIENT NEGATIVE (NEGATIVE); INFLUENZA B PATIENT NEGATIVE (NEGATIVE)
[2019-04-13] MEDS ORDERED: PRED50TA PO (19:50)
[2019-04-13] MEDS ORDERED: DOXY100T PO (19:50)
== END 2019-04-13 20:00 | disposition home or self-care (01) ==
LOC: ER 17:08
DX: J44.9 Chronic obstructive pulmonary disease, unspecified (principal); R10.32 Left lower quadrant pain; I48.91 Unspecified atrial fibrillation; I10 Essential (primary) hypertension; E03.9 Hypothyroidism, unspecified; F17.210 Nicotine dependence, cigarettes, uncomplicated; Z86.2 Personal history of diseases of the blood and blood-forming organs and certain disorders involving the immune mechanism; Z86.718 Personal history of other venous thrombosis and embolism
CPT/HCPCS: 36415; 71046; 74177; 80053; 81001; 83690; 85025; 87804; 94640; 96374; 99285; J2930; J7620; P9612; Q9967; J7030

== ENCOUNTER → 2019-11-11 | Outpatient (CLI) | payer MEDICARE ==
[~2019-11-11] MED LIST changes: +DOXY100T PO; +IOHEXOL 300 MG/ML 75 ML VIAL. IV ONE; +PRED50TA PO; +SENN-182 PO; -SENN-80 PO
--- NOTE | 2019-11-11 15:00 | RAD ---
Examination: CT angiography chest with IV contrast HISTORY: History of shortness of breath, chest pain, fatigue COMPARISON: None available TECHNIQUE: Axial CT angiographic images of chest with IV contrast. Coronal and sagittal 3-D MIP reformats are performed Exposure: One or more of the following individualized dose reduction techniques were utilized for this examination: 1. Automated exposure control 2. Adjustment of the mA and/or kV according to patient size 3. Use of iterative reconstruction technique FINDINGS: The central airways are patent. The heart size grossly appears unremarkable. The caliber of the aorta grossly appears unremarkable. There is no evidence of filling identified in the main pulmonary arterial trunk and right and left main pulmonary arteries and the visualized lobar, segmental branches of the pulmonary arteries. A 8 mm nodule identified in the right lung base. Mild bibasilar lung atelectasis. Linear atelectasis left lingula. Faint tree-in-bud airspace opacities identified in the bilateral lungs. The liver, adrenals grossly appears unremarkable. Gallbladder is mildly distended Large gallstone identified in the partially visualized gallbladder. Mild degenerative changes thoracic spine. There is a 1.8 cm soft tissue density identified in the left breast could be breast tissue or mass. IMPRESSION: 1. No evidence of pulmonary embolism. 2. A 1.8 cm soft tissue density identified in the left breast could be breast tissue or mass. Recommend follow-up mammography and ultrasound. 3. 8 mm mm nodule right lung base, unchanged. 4. Cholelithiasis. Electronically signed by: Kleber Velazquez MD (11/11/2019 2:57 PM) [id number]
== END ==
LOC: CT 13:54
PROVIDERS: ATTEND Family Medicine
DX: R91.1 Solitary pulmonary nodule (principal); K80.20 Calculus of gallbladder without cholecystitis without obstruction; R92.2 Inconclusive mammogram; J98.11 Atelectasis; K82.8 Other specified diseases of gallbladder
CPT/HCPCS: 71275; Q9967

== ENCOUNTER 2020-01-21 17:28 | Emergency (ER) | payer MEDICARE ==
[~2020-01-21] VITALS: Ht 160 cm; Wt 73.2 kg
[~2020-01-21 17:28] MED LIST changes: -IOHEXOL 300 MG/ML 75 ML VIAL. IV ONE
--- NOTE | 2020-01-21 17:58 | EKG ---
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
--- NOTE | 2020-01-21 18:12 | RAD ---
CHEST AP ONLY History: Reason: sob / Spl. Instructions: / History: Comparison: April 13, [address] November 11, 2019 Findings: Low lung volumes. Elevation the right hemidiaphragm, unchanged. Linear midlung opacities, unchanged. No pleural effusion. No pneumothorax. Prior median sternotomy. Normal heart size. Impression: 1. Low lung volumes with elevation of the right hemidiaphragm, unchanged. 2. Unchanged linear midlung opacities, may represent atelectasis or scarring. Electronically signed by: Richard Lackey DO (01/21/2020 6:09 PM) [facility]
[2020-01-21 18:15] LABS: BASO # 0.1 x10^3/uL (0.0-0.2); BASO % 1 % (0-3); EOS # 0.2 x10^3/uL (0.0-0.7); EOS % 2 % (0-3); HEMATOCRIT 41.2 % (36.0-47.0); HEMOGLOBIN 13.8 g/dL (12.0-15.5); LYMPH # 1.4 x10^3/uL (1.0-4.8); LYMPH % 15 % (24-48); MEAN CORPUSCULAR HEMOGLOBIN 30 pg (25-35); MEAN CORPUSCULAR HGB CONC 33 g/dL (31-37); MEAN CORPUSCULAR VOLUME 89 fL (79-100); MONO # 0.5 x10^3/uL (0.0-1.1); MONO % 5 % (0-9); NEUT # 7.6 x10^3uL (1.8-7.7); NEUT % 77 % (31-73); PLATELET COUNT 208 x10^3/uL (140-400); RED BLOOD COUNT 4.65 x10^6/uL (3.50-5.40); RED CELL DISTRIBUTION WIDTH 13.4 % (11.5-14.5); WHITE BLOOD COUNT 9.8 x10^3/uL (4.0-11.0)
[2020-01-21 18:23] LABS: CALCIUM 9.3 mg/dL (8.5-10.1); CREATININE 0.9 mg/dL (0.6-1.0); GFR 62.5; POTASSIUM 4.1 mmol/L (3.5-5.1)
[2020-01-21 18:37] LABS: ALBUMIN 3.5 g/dL (3.4-5.0); C REACTIVE PROTEIN 59.5 mg/L (0-3.3); TOTAL BILIRUBIN 1.1 mg/dL (0.2-1.0); TOTAL PROTEIN 7.1 g/dL (6.4-8.2)
[2020-01-21] MEDS ORDERED: ONDA4TAB7 PO (19:28)
[2020-01-21] MEDS ORDERED: METH4TAB2 PO (19:28)
[2020-01-21] MEDS ORDERED: CETI1TAB7 PO (19:28)
--- NOTE | 2020-01-21 19:30 | PHYS DOC ---
Past History Past Medical History: A-Fib, Anemia, Anxiety, COPD, DVT, Hypertension, Hypothyroid, Pneumonia, Other Past Surgical History: Other Additional Past Surgical Histo: thyroid tumor, cardiac stent Smoking: Cigarettes Alcohol Use: None Drug Use: None Adult General Chief Complaint Chief Complaint: FATIGUE HPI HPI Patient is a 69-year-old female who presents to the emergency room complaining of fatigue, diarrhea, cough, congestion, sore throat, earache. She states that she started feeling fatigued starting on Saturday. She started having significant fatigue starting Saturday. She is continue to work over the last few days which is made her more tired than usual. She has been having intermittent fevers. She has severe body aches. Review of Systems Review of Systems Review of systems negative unless otherwise noted Allergies Allergies Allergies Coded Allergies Type Severity Reaction Last Updated Verified No Known Drug Allergies 01/21/20 No Physical Exam Physical Exam General: Awake, alert, NAD. Well Nourished, well hydrated. Cooperative HEENT: Atraumatic, EOMI, PERRL, airway patent, moist oral mucosa Neck: Supple, trachea midline Respiratory: CTA bilaterally, normal effort, no wheezing/crackles CV: RRR, no murmur, cap refill <2 GI: Soft, nondistended, nontender, no masses MSK: No obvious deformities Skin: Warm, dry, intact Neuro: A&O x3, speech NL, sensory and motor grossly intact, no focal deficits Psych: Normal affect, normal mood, not suicidal or homicidal Current Patient Data Vital Signs Vital Signs Date Time Temp Pulse Resp B/P (MAP) Pulse Ox O2 Delivery O2 Flow Rate FiO2 01/21/20 17:28 99.7 82 20 119/73 (88) 95 Room Air Lab Results Laboratory Tests Test 01/21/20 17:45 White Blood Count 9.8 x10^3/uL (4.0-11.0) Red Blood Count 4.65 x10^6/uL (3.50-5.40) Hemoglobin 13.8 g/dL (12.0-15.5) Hematocrit 41.2 % (36.0-47.0) Mean Corpuscular Volume 89 fL (79-100) Mean Corpuscular Hemoglobin 30 pg (25-35) Mean Corpuscular Hemoglobin Concent 33 g/dL (31-37) Red Cell Distribution Width 13.4 % (11.5-14.5) Platelet Count 208 x10^3/uL (140-400) Neutrophils (%) (Auto) 77 % (31-73) H Lymphocytes (%) (Auto) 15 % (24-48) L Monocytes (%) (Auto) 5 % (0-9) Eosinophils (%) (Auto) 2 % (0-3) Basophils (%) (Auto) 1 % (0-3) Neutrophils # (Auto) 7.6 x10^3uL (1.8-7.7) Lymphocytes # (Auto) 1.4 x10^3/uL (1.0-4.8) Monocytes # (Auto) 0.5 x10^3/uL (0.0-1.1) Eosinophils # (Auto) 0.2 x10^3/uL (0.0-0.7) Basophils # (Auto) 0.1 x10^3/uL (0.0-0.2) Sodium Level 140 mmol/L (136-145) Potassium Level 4.1 mmol/L (3.5-5.1) Chloride Level 103 mmol/L (98-107) Carbon Dioxide Level 26 mmol/L (21-32) Anion Gap 11 (6-14) Blood Urea Nitrogen 14 mg/dL (7-20) Creatinine 0.9 mg/dL (0.6-1.0) Estimated GFR (Cockcroft-Gault) 62.5 BUN/Creatinine Ratio 16 (6-20) Glucose Level 82 mg/dL (70-99) Lactic Acid Level 0.5 mmol/L (0.4-2.0) Calcium Level 9.3 mg/dL (8.5-10.1) Total Bilirubin 1.1 mg/dL (0.2-1.0) H Aspartate Amino Transferase (AST) 20 U/L (15-37) Alanine Aminotransferase (ALT) 23 U/L (14-59) Alkaline Phosphatase 145 U/L (46-116) H Lactate Dehydrogenase 147 U/L (81-234) Creatine Kinase 57 U/L (26-192) Troponin I Quantitative < 0.017 ng/mL (0-0.055) C-Reactive Protein 59.5 mg/L (0-3.3) H MZ-Eef-S-Type Natriuretic Peptide 759 pg/mL (0-124) H Total Protein 7.1 g/dL (6.4-8.2) Albumin 3.5 g/dL (3.4-5.0) Albumin/Globulin Ratio 1.0 (1.0-1.7) EKG EKG [] Radiology/Procedures Radiology/Procedures [] Course & Med Decision Making Course & Med Decision Making Pertinent Labs and Imaging studies reviewed. (See chart for details) Patient is a 69-year-old female who presents to the emergency room with viral symptoms. At this time there is concern for the novel coronavirus 19. Risk stratifying work-up was ordered including chest x-ray, d-dimer, CPK, CRP, LDH, troponin, ferritin, CBC, CMP. Due to concern of COVID-19 I have discussed the importance of quarantining with the patient. I have discussed with them that they should avoid grocery stores, gas stations, pharmacies, work, friends/family's homes. I discussed with him that it is important that they do not expose themselves to anyone else for the next 14 days. Chest x-ray does not show infiltrates at this time and patient will not be treated with empiric antibiotics. I have discussed with the patient the course of the illness and we have discussed strict return precautions. At this time patient does not need admission as they are stable, however it is possible that they may get worse over the next few days and we have discussed the importance of coming back if they develop severe shortness of breath or any other symptoms that they are concerned about. Patient's test results and vitals while in the ED were fully reviewed and discussed with the patient. Patient is stable and at this time does not need admission to the hospital. We have discussed strict return precautions and the importance of following up with their Primary Care Physician. Patient stated understanding and was given an opportunity to ask any questions. Dragon Disclaimer Dragon Disclaimer This electronic medical record was generated, in whole or in part, using a voice recognition dictation system. Departure Departure: Impression: Primary Impression: Suspected 2019-nCoV infection Disposition: 01 HOME/RESIDENCE PRIOR TO ADM Condition: STABLE Referrals: BAL CHAPA MD (PCP) Patient Instructions: Shortness of Breath Additional Instructions: Thank you for visiting [facility]. We appreciate you trusting us with your care. If any additional problems come up please don't hesitate to return to visit us. Follow up with your primary care provider so they can plan additional care if needed and know about the problem that you had today. If symptoms worsen come back to the Emergency Department. Any concerning symptoms that start such as chest pain, shortness of air, weakness or numbness on one side of the body, running high fevers or any other concerning symptoms return to the ER. You have a viral syndrome which may include symptoms like muscle aches, fevers, chills, runny nose, cough, sneezing, sore throat, nausea, vomiting, or diarrhea. One of the potential viruses that you may have is SARS-CoV-2, the virus that causes COVID-19, also known as the Coronavirus. You are just as likely to have a different viral infection such as the common cold, flu, etc. Most patients with the Coronavirus have mild symptoms and recover on their own. Resting, staying hydrated, and sleep based on known cases can be helpful. As of todays visit, you are well enough to go home and treat your symptoms with oral fluids and over the counter medications. Coronavirus testing is not performed on most people with mild symptoms who are being discharged from the emergency department. If Coronavirus testing was performed today the results will not be available for possibly up to 3-4 days. If your result is positive you will be contacted. Please follow the following precautions at home: 1. Stay home except to get medical care. 2. As advised by the CDC, we recommend that you stay in your home and minimize contact with other people. We do not want you to spread the infection. 3. Those who are older or have significant medical issues may have more severe symptoms from this infection. We recommend self-isolation FOR AT LEAST 7 DAYS after your 1st day of symptoms. AFTER you feel better please wait AT LEAST ANOTHER WEEK before returning to regular activities and being around other people. 4. IF you become sicker and have difficulty breathing, chest pain, are unable to eat/drink, severe vomiting, diarrhea, or weakness you may need to return to the Emergency Department. 5. You should restrict activities outside of your home, except for getting medical care. DO NOT go to work, school, or public areas. Avoid using public transportation, ride sharing, or taxis. 6. Separate yourself from other people in your home. You should use a separate bathroom if possible. 7. Avoid sharing personal household items such as dishes, cups, eating utensils, towels, etc. 8. Clean all high touch surfaces every day (door knobs, counter tops, etc). Use a household cleaning spray or wipe per label instructions. 9. Clean your hands often. Wash your hands with soap and water for at least 20 seconds. 10. Cover your mouth and nose when you cough or sneeze. 11. Throw used tissues in the trash and immediately wash your hands. For additional resources please visit the CDC website or the [facility] ([phone]), you may also call 211 for further information. Scripts Cetirizine Hcl/Pseudoephedrine (ZYRTEC-D TABLET) 1 Each Tab.er.12h 1 TAB PO BID for congestion, #20 TAB Prov: MARIANO BYNUM MD 01/21/20 Ondansetron Hcl (ZOFRAN) 4 Mg Tablet 1 TAB PO PRN Q6HRS PRN for NAUSEA, #6 TAB Prov: MARIANO BYNUM MD 01/21/20 Methylprednisolone (MEDROL) 4 Mg Tab.ds.pk 1 PKG PO UD for shortness of breath, #1 PKG Prov: MARIANO BYNUM MD 01/21/20 Justification of Admission: Justification of Admission: Justification of Admission Dx: N/A MARIANO BYNUM MD Jan 21, 2020 19:30
[2020-01-21 19:45] VITALS: BP 136/75
--- NOTE | 2020-01-25 11:02 | NUR ---
IP: notified patient of COVID result.
== END 2020-01-21 19:49 | disposition home or self-care (01) ==
LOC: ER 17:28
DX: R53.83 Other fatigue (principal); R19.7 Diarrhea, unspecified; J02.9 Acute pharyngitis, unspecified; I48.91 Unspecified atrial fibrillation; F41.9 Anxiety disorder, unspecified; J44.9 Chronic obstructive pulmonary disease, unspecified; I10 Essential (primary) hypertension; E03.9 Hypothyroidism, unspecified; F17.210 Nicotine dependence, cigarettes, uncomplicated; Z20.828 Contact with and (suspected) exposure to other viral communicable diseases; Z86.718 Personal history of other venous thrombosis and embolism
CPT/HCPCS: 36415; 71045; 80053; 82550; 83605; 83615; 83880; 84484; 85025; 86140; 87040; 93005; 99285; U0003

== ENCOUNTER → 2020-11-16 | Outpatient (CLI) | payer MEDICARE ==
[~2020-11-16] MED LIST changes: -AMIO200T4 PO; +AMIO200T6 PO; +CETI1TAB7 PO; +METH4TAB2 PO; +ONDA4TAB7 PO
--- NOTE | 2020-11-16 10:28 | RAD ---
EXAM: CT HEAD WITHOUT CONTRAST. HISTORY: Fall, head injury. TECHNIQUE: Computed tomography of the head was performed without intravenous contrast. One or more of the following individualized dose reduction techniques were utilized for this examination: 1. Automated exposure control. 2. Adjustment of the mA and/or kV according to patient size. 3. Use of iterative reconstruction technique. COMPARISON: 04/03/2019. FINDINGS: There is no intracranial hemorrhage. Hernandez-white differentiation is preserved. The ventricle s are normal in size and position. A small scalp hematoma is noted along the left forehead. The visualized paranasal sinuses appear jerod r. The orbits are unremarkable. The temporal bones are unremarkable. The calvarium reveals no suspici ous lesions. IMPRESSION: 1. Small left forehead scalp hematoma. No acute intracranial findings. Electronically signed by: Lary Hicks MD (11/16/2020 10:26 AM) [id number]
== END ==
LOC: CT 09:01
PROVIDERS: ATTEND Nurse Practitioner Adult Health
DX: S00.03XA Contusion of scalp, initial encounter (principal); W19.XXXA Unspecified fall, initial encounter; Y93.89 Activity, other specified; Y92.89 Other specified places as the place of occurrence of the external cause; Y99.8 Other external cause status
CPT/HCPCS: 70450